=== PATIENT | female | born 1945 | race Caucasian/White ===

== ENCOUNTER → 2016-09-23 | Outpatient (CLI) | payer MEDICARE ==
[~2016-09-23] MED LIST: ASPI1TAB PO; ATOR1TAB21 PO; BENA20TA2 PO; CLON-412 PO; CORE25TA PO; GLIM4TAB PO; MAGN64TASA PO; POTA10CA PO; STOO100C PO; TORS10TA22 PO; TYLE500T78 PO
[2016-09-23 11:14] LABS: ALBUMIN 3.6 GM/DL (3.2-5.2); CALCIUM LEVEL 8.5 MG/DL (8.8-10.2); CREATININE FOR GFR 2.14 MG/DL (0.55-1.02); PHOSPHORUS LEVEL 2.8 MG/DL (2.5-4.9); POTASSIUM SERUM 4.4 MEQ/L (3.5-5.1)
== END ==
LOC: M LAB 10:10
PROVIDERS: ATTEND Physician Assistant
DX: I50.32 Chronic diastolic (congestive) heart failure (principal)

== ENCOUNTER → 2016-09-29 | Day surgery (SDC) | payer MEDICARE ==
[~2016-09-29] VITALS: Ht 152.4 cm; Wt 104.3 kg
[~2016-09-29] MED LIST changes: +BACITRACIN OINT 30GM As Ordered ONE; +CARVedilol 12.5 MG TAB PO ONE; +ISOVUE-300 61% 50ML VIAL (Q9967) As Ordered ONE; +LIDOCAINE 1% SDV INJ 30 ML VIAL As Ordered ONE; +LIDOCAINE 1% SDV INJ 30 ML VIAL XX ONE; +LIDOCAINE 2% INJ 100 MG/5 ML SDV (FOR ANES.) As Ordered ONE; +LR 1,000 ML IV SCH; +MIDAZOLAM INJ 2 MG/2 ML VIAL (J2250) As Ordered ONE; +PROPOFOL 200 MG/20 ML VIAL As Ordered ONE; -TORS10TA22 PO; +TORS10TA3 PO; +VANCOMYCIN 1000 MG/20 ML VIAL (J3370) As Ordered ONE; +ceFAZolin SOD 1 GM in D5W MINI-BAG PLUS 50 ML IV ONE; +fentaNYL 100 MCG/2 ML INJECTION (J3010) As Ordered ONE
[2016-09-29 14:11] VITALS: BP 213/107
[2016-09-29 18:00] VITALS: BP 186/77
--- NOTE | 2016-09-29 21:44 | RO ---
DATE OF PROCEDURE: 09/29/2016 PREOPERATIVE DIAGNOSIS: Battery depletion of dual chamber pacemaker pulse generator. POSTOPERATIVE DIAGNOSIS: Battery depletion of dual chamber pacemaker pulse generator. FINDINGS: Battery depletion of dual chamber pacemaker pulse generator. OPERATIVE PROCEDURE: Explantation of old dual chamber pacemaker pulse generator. Implantation of new dual chamber pacemaker pulse generator. SURGEON: Suraj Long MD PHARMACY RESIDENT: None. ANESTHESIA: Lidocaine 1% local/monitored anesthetic care. ESTIMATED BLOOD LOSS: Less than 15 mL. DRAINS: None. BLOOD PRODUCTS REPLACED: None. DRAINS: None. SPECIMENS: None. BIOPSIES: None. COMPLICATIONS: None. DESCRIPTION OF OPERATION: The patient was prepped and draped over the left pectoral region. 3M Ioban film was applied. Lidocaine 1% was used for local anesthetic. An incision was made with a #15 blade through and along the length of the preexisting pacemaker incision scar. Initially fine scissor dissection was used to work my way through the fatty layer and down to the anterior capsule, however, it was noted that a total of four pacemaker lead destiny-cross overlaps were present in the path of the incision and therefore, I used some assistance to free up and expose some of the lead material with PEAK PlasmaBlade. The suture holding down the pacemaker pulse generator was then cut with a blade. The pacemaker pulse generator was removed from the pocket. The terminal pins were freed and removed from the header after loosening the set screws. The terminal pins of the existing leads were connected to Alligator clips and tested and found to be satisfactory. Next, the respective terminal pins were placed into the header of the new pacemaker pulse generator and each one was secured by tightening the set screws with the hex screwdriver. The pacemaker pulse generator was then placed back into the pacemaker pocket. The deep layer was closed using individual sutures consisting of #4-0 Vicryl and utmost care was used to avoid perforating the pacemaker leads with the suture needle as some of the lead material continues to be on top of the pacemaker pulse generator. The skin was closed using nelly. The patient tolerated the procedure well without any immediate complications. The pacemaker pulse generator that was explanted was a [employer], model 5386 with serial number [id number], originally implanted 05/24/[address] Paulo Pearson. The new pacemaker pulse generator implanted was a [employer] Vishnu VANEGAS, model number [id number] with serial number [id number]. The existing right atrial lead was a [employer], model number 1388TC/52, originally implanted 05/24/2004 and serial number [id number]. Testing in the operating room for the right atrial lead showed capture threshold of 0.75 volts with 0.4 ms with P wave amplitude of 1.6 mV and lead impedance of 330 ohms. The existing chronic right atrial lead was a [employer], model number 1388TC/58 with serial number [id number] originally implanted 05/24/2004. Testing in the operating room in bipolar configuration for the right ventricle leads for a capture threshold of 1.125 volts at 0.4 ms and lead impendence of 410 ohms. The patient was pacemaker dependent with underlying asystole and therefore no R wave could be measured.
== END | disposition home or self-care (01) ==
LOC: M SDC 12:51
PROVIDERS: ATTEND Internal Medicine Cardiovascular Disease
DX: Z45.010 Encounter for checking and testing of cardiac pacemaker pulse generator [battery] (principal); E11.9 Type 2 diabetes mellitus without complications; I10 Essential (primary) hypertension; Z79.82 Long term (current) use of aspirin; E78.5 Hyperlipidemia, unspecified; Z79.899 Other long term (current) drug therapy
CPT/HCPCS: 33228; C1721; J0690; J3010; Q9967

== ENCOUNTER → 2017-02-17 | Outpatient (REF) | payer MEDICARE ==
[~2017-02-17] MED LIST changes: -BACITRACIN OINT 30GM As Ordered ONE; -CARVedilol 12.5 MG TAB PO ONE; -ISOVUE-300 61% 50ML VIAL (Q9967) As Ordered ONE; -LIDOCAINE 1% SDV INJ 30 ML VIAL As Ordered ONE; -LIDOCAINE 1% SDV INJ 30 ML VIAL XX ONE; -LIDOCAINE 2% INJ 100 MG/5 ML SDV (FOR ANES.) As Ordered ONE; -LR 1,000 ML IV SCH; -MIDAZOLAM INJ 2 MG/2 ML VIAL (J2250) As Ordered ONE; -PROPOFOL 200 MG/20 ML VIAL As Ordered ONE; -VANCOMYCIN 1000 MG/20 ML VIAL (J3370) As Ordered ONE; -ceFAZolin SOD 1 GM in D5W MINI-BAG PLUS 50 ML IV ONE; -fentaNYL 100 MCG/2 ML INJECTION (J3010) As Ordered ONE
== END ==
LOC: M LAB REF 12:53
PROVIDERS: ATTEND Internal Medicine Nephrology
DX: N39.0 Urinary tract infection, site not specified (principal)

== ENCOUNTER → 2017-04-10 | Outpatient (CLI) | payer MEDICARE ==
[~2017-04-10] MED LIST changes: -BENA20TA2 PO; +BENA20TA8 PO; +CLEO150C PO; +ISOS60TA2; +TORS20TA2; +VALS1TAB48
[2017-04-10 07:53] LABS: BASO # 0.1 K/mm3 (0.0-0.2); BASO % 0.8 % (0.0-1.0); EOS # 0.2 K/mm3 (0.0-0.50); EOS % 2.9 % (0.0-3.0); LARGE UNSTAINED CELL # 0.1 K/mm3 (0.0-0.4); LYMPH # 1.7 K/mm3 (1.5-4.5); LYMPH % 22.9 % (24.0-44.0); MEAN CORPUSCULAR HEMOGLOBIN 32.5 pg (27.0-33.0); MEAN CORPUSCULAR HGB CONC 33.7 g/dl (32.0-36.5); MEAN CORPUSCULAR VOLUME 96.3 fl (80.0-96.0); MONO # 0.5 K/mm3 (0.0-0.8); MONO % 7.2 % (0.0-5.0); NEUTROPHILS # 4.7 K/mm3 (1.8-7.7); NEUTROPHILS % 65.3 % (36.0-66.0); PLATELET COUNT, AUTOMATED 203 k/mm3 (150-450); RED CELL DISTRIBUTION WIDTH 13.2 % (11.5-14.5); WHITE BLOOD COUNT 7.2 K/mm3 (4.0-10.0)
[2017-04-10 08:18] LABS: ALBUMIN 3.2 GM/DL (3.2-5.2); ALBUMIN/GLOBULIN RATIO 0.97 (1.00-1.93); BILIRUBIN,TOTAL 0.3 MG/DL (0.2-1.0); CALCIUM LEVEL 8.9 MG/DL (8.8-10.2); CREATININE FOR GFR 1.85 MG/DL (0.55-1.02); GLOMERULAR FILTRATION RATE 28.4 (>39); POTASSIUM SERUM 4.3 MEQ/L (3.5-5.1); TOTAL PROTEIN 6.5 GM/DL (6.4-8.2)
== END ==
LOC: M LAB 07:21
PROVIDERS: ATTEND Nurse Practitioner Family
DX: E11.9 Type 2 diabetes mellitus without complications (principal); E78.5 Hyperlipidemia, unspecified; N18.4 Chronic kidney disease, stage 4 (severe); I50.9 Heart failure, unspecified; I11.0 Hypertensive heart disease with heart failure

== ENCOUNTER 2017-04-14 10:36 | Emergency (ER) | payer MEDICARE ==
[~2017-04-14 10:36] MED LIST changes: -CLEO150C PO; -ISOS60TA2; -TORS20TA2; -VALS1TAB48
[2017-04-14] MEDS ORDERED: ISOS60TA2 (11:07)
[2017-04-14] MEDS ORDERED: TORS20TA2 (11:07)
[2017-04-14] MEDS ORDERED: VALS1TAB48 (11:07)
[2017-04-14 11:24] LABS: BASO # 0.1 K/mm3 (0.0-0.2); BASO % 0.8 % (0.0-1.0); EOS # 0.2 K/mm3 (0.0-0.50); EOS % 2.3 % (0.0-3.0); LARGE UNSTAINED CELL # 0.1 K/mm3 (0.0-0.4); LARGE UNSTAINED CELL % 1.1 % (0.0-4.0); LYMPH # 1.3 K/mm3 (1.5-4.5); LYMPH % 15.7 % (24.0-44.0); MEAN CORPUSCULAR HGB CONC 33.8 g/dl (32.0-36.5); MEAN CORPUSCULAR VOLUME 97.8 fl (80.0-96.0); MONO # 0.5 K/mm3 (0.0-0.8); MONO % 6.9 % (0.0-5.0); NEUTROPHILS # 5.6 K/mm3 (1.8-7.7); NEUTROPHILS % 73.1 % (36.0-66.0); PLATELET COUNT, AUTOMATED 196 k/mm3 (150-450); RED CELL DISTRIBUTION WIDTH 13.2 % (11.5-14.5); WHITE BLOOD COUNT 7.7 K/mm3 (4.0-10.0)
[2017-04-14 11:51] LABS: ALBUMIN 3.1 GM/DL (3.2-5.2); ALBUMIN/GLOBULIN RATIO 0.91 (1.00-1.93); ALKALINE PHOSPHATASE 112 U/L (45-117); ALT/SGPT 14 U/L (12-78); ANION GAP 8 MEQ/L (8-16); AST/SGOT 8 U/L (15-37); BILIRUBIN,DIRECT 0.1 MG/DL (0.0-0.2); BILIRUBIN,TOTAL 0.5 MG/DL (0.2-1.0); BLOOD UREA NITROGEN 32 MG/DL (7-18); CALCIUM LEVEL 8.6 MG/DL (8.8-10.2); CARBON DIOXIDE LEVEL 24 MEQ/L (21-32); CHLORIDE LEVEL 110 MEQ/L (98-107); CREATININE FOR GFR 2.01 MG/DL (0.55-1.02); FREE T4 1.41 NG/DL (0.76-1.46); GLOMERULAR FILTRATION RATE 25.8 (>39); GLUCOSE, FASTING 214 MG/DL (83-110); POTASSIUM SERUM 4.7 MEQ/L (3.5-5.1); SODIUM LEVEL 142 MEQ/L (136-145); TOTAL PROTEIN 6.5 GM/DL (6.4-8.2)
--- NOTE | 2017-04-14 12:06 | REP ---
PORTABLE CHEST: AP portable view of the chest is performed. COMPARISON: 01/23/2016 as well as other prior exams. There is cardiomegaly again noted. There is pulmonary venous hypertension with scattered linear fibroatelectatic changes. No consolidating infiltrate is seen. Left pacemaker is again noted. Mediastinal silhouette is unchanged. IMPRESSION: Cardiomegaly. Scattered fibroatelectatic changes. No infiltrate is seen. Signed by Roshan Wiggins MD 04/14/2017 03:29 P
[2017-04-14] MEDS ORDERED: CLINDAMYCIN 900 MG in APPROPRIATE DILUENT 1 EA IV ONE (13:15)
[2017-04-14 14:45] VITALS: BP 130/62
[2017-04-14] MEDS ORDERED: CLEO150C PO (14:58)
--- NOTE | 2017-04-16 11:07 | ECGEPIP ---
Stationary ECG Study [facility] - ED Test Date: 2017-04-14 Pat Name: MIC FUNK Department: Room: - Gender: F [employer] Field Supervisor: tony : 1945 Requested By: Kit Funk Order Number: [id number] Reading MD: America Lombardi Measurements Intervals [place] Rate: 69 P: 199 VT: 204 QRS: 57 QRSD: 159 T: 121 QT: 436 QTc: 470 Interpretive Statements ELECTRONIC ATRIAL PACEMAKER ELECTRONIC VENTRICULAR PACEMAKER ABNORMAL RHYTHM ECG Electronically Signed On 04-16-2017 11:07:40 EDT by America Lombardi
== END 2017-04-14 15:09 | disposition home or self-care (01) ==
LOC: M ED 10:36
DX: L03.90 Cellulitis, unspecified (principal); R42 Dizziness and giddiness; Z95.0 Presence of cardiac pacemaker; I50.9 Heart failure, unspecified; E11.9 Type 2 diabetes mellitus without complications; I10 Essential (primary) hypertension; R55 Syncope and collapse; N18.9 Chronic kidney disease, unspecified; I51.7 Cardiomegaly; Z79.82 Long term (current) use of aspirin; Z79.899 Other long term (current) drug therapy; Z88.6 Allergy status to analgesic agent; Z88.8 Allergy status to other drugs, medicaments and biological substances
CPT/HCPCS: 71010; 80048; 80076; 82550; 82553; 83605; 83690; 84439; 84443; 84484; 85025; 87040; 87070; 87077; 87186; 93005; 93041; 94760; 96374; 99285; G0463

== ENCOUNTER → 2017-09-11 | Outpatient (REF) | payer MEDICARE ==
[~2017-09-11] MED LIST changes: +CLEO150C PO; +ISOS60TA2; +TORS20TA2; +VALS1TAB48
== END ==
LOC: M SFHCPLAZ 09:22
PROVIDERS: ATTEND Nurse Practitioner Family
DX: N18.4 Chronic kidney disease, stage 4 (severe) (principal); E11.9 Type 2 diabetes mellitus without complications; Z79.899 Other long term (current) drug therapy

== ENCOUNTER → 2017-11-16 | Outpatient (REF) | payer MEDICARE | LOC: M SFHCPLAZ 11-17 13:18 | DX: N39.0 Urinary tract infection, site not specified (principal) | CPT/HCPCS: 87086 ==

== ENCOUNTER → 2017-11-23 | Outpatient (REF) | payer MEDICARE ==
[2017-11-23 11:59] LABS: APPEARANCE, URINE HAZY (CLEAR); BACTERIA, URINE AUTO 1+ (NEGATIVE); BILIRUBIN, URINE AUTO NEGATIVE (NEGATIVE); BLOOD, URINE BLOOD 1+ (NEGATIVE); COLOR, URINE YELLOW (YELLOW); GLUCOSE, URINE (UA) AUTO 1+ mg/dL (NEGATIVE); KETONE, URINE AUTO NEGATIVE (NEGATIVE); LEUKOCYTE ESTERASE, URINE AUTO 2+ (NEGATIVE); NITRITE, URINE AUTO NEGATIVE (NEGATIVE); PROTEIN, URINE AUTO 1+ mg/dL (NEGATIVE); RBC, URINE AUTO 3 /HPF (0-3); SPECIFIC GRAVITY URINE AUTO 1.013 (1.002-1.035); SQUAMOUS EPITHELIAL CELL UR AU 6 /HPF (0-6); UROBILINOGEN, URINE AUTO 0.2 mg/dL (0.0-2.0); WBC, URINE AUTO 24 /HPF (0-3)
[2017-11-23 12:30] LABS: ALBUMIN 3.5 GM/DL (3.2-5.2); ALBUMIN/GLOBULIN RATIO 1.03 (1.00-1.93); ALKALINE PHOSPHATASE 135 U/L (45-117); ALT/SGPT 16 U/L (12-78); ANION GAP 10 MEQ/L (8-16); AST/SGOT 17 U/L (7-37); BILIRUBIN,TOTAL 0.6 MG/DL (0.2-1.0); BLOOD UREA NITROGEN 18 MG/DL (7-18); CALCIUM LEVEL 9.2 MG/DL (8.8-10.2); CARBON DIOXIDE LEVEL 30 MEQ/L (21-32); CHLORIDE LEVEL 103 MEQ/L (98-107); CREATININE FOR GFR 1.79 MG/DL (0.55-1.30); GLOMERULAR FILTRATION RATE 29.5 (>39); GLUCOSE, FASTING 248 MG/DL (70-100); POTASSIUM SERUM 4.5 MEQ/L (3.5-5.1); SODIUM LEVEL 143 MEQ/L (136-145); TOTAL PROTEIN 6.9 GM/DL (6.4-8.2)
== END ==
LOC: M SFHCPLAZ 08:31
DX: R30.0 Dysuria (principal); N18.4 Chronic kidney disease, stage 4 (severe)
CPT/HCPCS: 80053

== ENCOUNTER → 2017-12-01 | Outpatient (CLI) | payer MEDICARE ==
[2017-12-01 09:45] LABS: CHOLESTEROL LEVEL 141 MG/DL (<200); HDL CHOLESTEROL 38 MG/DL (>40); LDL CHOLESTEROL 36.6 MG/DL (<100); NON-HDL-C 103 MG/DL; TRIGLYCERIDES LEVEL 332 MG/DL (<150)
== END ==
LOC: M LAB 08:44
DX: E78.2 Mixed hyperlipidemia (principal)
CPT/HCPCS: 80061

== ENCOUNTER → 2017-12-07 | Outpatient (REF) | payer MEDICARE ==
[2017-12-07 12:19] LABS: ESTIMATED AVERAGE GLUCOSE 266 MG/DL (60-110); HEMOGLOBIN A1c 10.9 %
== END ==
LOC: M SFHCPLAZ 09:02
DX: E11.9 Type 2 diabetes mellitus without complications (principal)
CPT/HCPCS: 83036

== ENCOUNTER → 2018-01-11 | Outpatient (REF) | payer MEDICARE | LOC: M LAB REF 16:48 | DX: N39.0 Urinary tract infection, site not specified (principal) | CPT/HCPCS: 87086 ==

== ENCOUNTER → 2018-04-05 | Outpatient (REF) | payer MEDICARE ==
[2018-04-05 12:08] LABS: ALBUMIN 3.3 GM/DL (3.2-5.2); ALBUMIN/GLOBULIN RATIO 0.89 (1.00-1.93); ALKALINE PHOSPHATASE 115 U/L (45-117); ALT/SGPT 19 U/L (12-78); ANION GAP 9 MEQ/L (8-16); AST/SGOT 13 U/L (7-37); BILIRUBIN,TOTAL 0.5 MG/DL (0.2-1.0); BLOOD UREA NITROGEN 18 MG/DL (7-18); CALCIUM LEVEL 9.1 MG/DL (8.8-10.2); CARBON DIOXIDE LEVEL 28 MEQ/L (21-32); CHLORIDE LEVEL 103 MEQ/L (98-107); CREATININE FOR GFR 1.57 MG/DL (0.55-1.30); GLOMERULAR FILTRATION RATE 34.2 (>39); GLUCOSE, FASTING 245 MG/DL (70-100); POTASSIUM SERUM 4.6 MEQ/L (3.5-5.1); SODIUM LEVEL 140 MEQ/L (136-145)
[2018-04-05 12:29] LABS: ESTIMATED AVERAGE GLUCOSE 255 MG/DL (60-110); HEMOGLOBIN A1c 10.5 %
== END ==
LOC: M SFHCPLAZ 09:32
DX: N18.4 Chronic kidney disease, stage 4 (severe) (principal); E11.22 Type 2 diabetes mellitus with diabetic chronic kidney disease
CPT/HCPCS: 80053

== ENCOUNTER → 2018-07-14 | Outpatient (REF) | payer MEDICARE ==
[2018-07-14 12:04] LABS: ESTIMATED AVERAGE GLUCOSE 206 MG/DL (60-110); HEMOGLOBIN A1c 8.8 %
[2018-07-14 12:07] LABS: ALBUMIN 3.6 GM/DL (3.2-5.2); ALBUMIN/GLOBULIN RATIO 1.09 (1.00-1.93); ALKALINE PHOSPHATASE 106 U/L (45-117); ALT/SGPT 13 U/L (12-78); ANION GAP 6 MEQ/L (8-16); AST/SGOT 15 U/L (7-37); BILIRUBIN,TOTAL 0.8 MG/DL (0.2-1.0); BLOOD UREA NITROGEN 21 MG/DL (7-18); CALCIUM LEVEL 9.3 MG/DL (8.8-10.2); CARBON DIOXIDE LEVEL 30 MEQ/L (21-32); CHLORIDE LEVEL 103 MEQ/L (98-107); CREATININE FOR GFR 1.63 MG/DL (0.55-1.30); GLOMERULAR FILTRATION RATE 32.7 (>39); GLUCOSE, FASTING 161 MG/DL (70-100); POTASSIUM SERUM 4.3 MEQ/L (3.5-5.1); SODIUM LEVEL 139 MEQ/L (136-145); TOTAL PROTEIN 6.9 GM/DL (6.4-8.2)
== END ==
LOC: M SFHCPLAZ 09:59
DX: E11.9 Type 2 diabetes mellitus without complications (principal)
CPT/HCPCS: 80053

== ENCOUNTER → 2018-12-22 | Outpatient (REF) | payer MEDICARE ==
[~2018-12-22] MED LIST changes: -ASPI1TAB PO; +ASPI81TA26 PO; +KLOR10TA76 PO; -POTA10CA PO; -VALS1TAB48; +VALS1TAB68
[2018-12-22 15:52] LABS: ALBUMIN 3.5 GM/DL (3.2-5.2); BILIRUBIN,TOTAL 0.6 MG/DL (0.2-1.0); CALCIUM LEVEL 8.8 MG/DL (8.8-10.2); CHOLESTEROL RISK RATIO 3.228 (<5); CREATININE FOR GFR 2.16 MG/DL (0.55-1.30); GLOMERULAR FILTRATION RATE 23.7 (>39); HEMOGLOBIN A1c 12.6 %; POTASSIUM SERUM 4.8 MEQ/L (3.5-5.1); TOTAL PROTEIN 6.4 GM/DL (6.4-8.2)
[2018-12-22 18:25] LABS: MAGNESIUM LEVEL 1.8 MG/DL (1.8-2.4)
== END ==
LOC: M SFHCPLAZ 13:59
PROVIDERS: ATTEND Nurse Practitioner Family
DX: E11.9 Type 2 diabetes mellitus without complications (principal); I13.0 Hypertensive heart and chronic kidney disease with heart failure and stage 1 through stage 4 chronic kidney disease, or unspecified chronic kidney disease; N18.4 Chronic kidney disease, stage 4 (severe); E78.5 Hyperlipidemia, unspecified
CPT/HCPCS: 36415; 80053; 80061; 83036; 83735; G0463

== ENCOUNTER → 2019-04-27 | Outpatient (REF) | payer MEDICARE ==
[~2019-04-27] MED LIST changes: +MM S100C PO; -STOO100C PO
[2019-04-27 16:55] LABS: HEMOGLOBIN A1c 13.1 %
[2019-04-27 16:59] LABS: ALBUMIN 3.4 GM/DL (3.2-5.2); BILIRUBIN,TOTAL 0.4 MG/DL (0.2-1.0); CALCIUM LEVEL 8.9 MG/DL (8.8-10.2); CREATININE FOR GFR 2.14 MG/DL (0.55-1.30); GLOMERULAR FILTRATION RATE 23.9 (>39); POTASSIUM SERUM 5.5 MEQ/L (3.5-5.1); TOTAL PROTEIN 6.6 GM/DL (6.4-8.2)
== END ==
LOC: M SFHCPLAZ 14:02
PROVIDERS: ATTEND Nurse Practitioner Family
DX: E11.22 Type 2 diabetes mellitus with diabetic chronic kidney disease (principal); E11.65 Type 2 diabetes mellitus with hyperglycemia; E78.5 Hyperlipidemia, unspecified
CPT/HCPCS: 36415; 80053; 83036; G0463

== ENCOUNTER → 2019-12-12 | Outpatient (REF) | payer MEDICARE ==
[~2019-12-12] MED LIST changes: -GLIM4TAB PO; +GLIM4TAB5 PO
[2019-12-12 14:09] LABS: ALBUMIN 3.3 GM/DL (3.2-5.2); BILIRUBIN,TOTAL 0.8 MG/DL (0.2-1.0); CHOLESTEROL RISK RATIO 3.114 (<5); CREATININE FOR GFR 1.57 MG/DL (0.55-1.30); GLOMERULAR FILTRATION RATE 34.1 (>39); POTASSIUM SERUM 4.1 MEQ/L (3.5-5.1); TOTAL PROTEIN 6.5 GM/DL (6.4-8.2)
[2019-12-12 14:18] LABS: HEMOGLOBIN A1c 12.2 %
== END ==
LOC: M SFHCPLAZ 10:09
PROVIDERS: ATTEND Physician Assistant
DX: E11.65 Type 2 diabetes mellitus with hyperglycemia (principal); E78.5 Hyperlipidemia, unspecified
CPT/HCPCS: 36415; 80053; 80061; 83036; G0463

== ENCOUNTER 2020-03-28 23:33 | Inpatient (IN) | payer MEDICARE ==
[~2020-03-28] VITALS: Ht 175.3 cm; Wt 104.0 kg
[2020-03-29] MEDS ORDERED: CALC1CAP31 (00:11)
[2020-03-29] MEDS ORDERED: LOSA50TA88 (00:11)
[2020-03-29] MEDS ORDERED: TORS10TA3 (00:11)
[2020-03-29 00:41] LABS: BASO # 0.1 10^3/uL (0.0-0.2); BASO % 0.4 % (0.0-1.0); EOS # 0.1 10^3/uL (0.0-0.5); EOS % 0.5 % (0.0-3.0); HEMATOCRIT 32.4 % (36.0-47.0); LYMPH # 0.9 10^3/uL (1.5-5.0); LYMPH % 5.6 % (24.0-44.0); MEAN CORPUSCULAR HEMOGLOBIN 32.8 pg (27.0-33.0); MEAN CORPUSCULAR VOLUME 96.7 fl (80.0-96.0); MONO # 1.9 10^3/uL (0.0-0.8); MONO % 11.5 % (0.0-5.0); NEUTROPHILS # 13.2 10^3/uL (1.5-8.5); NEUTROPHILS % 80.5 % (36.0-66.0); PLATELET COUNT, AUTOMATED 157 10^3/uL (150-450); RED BLOOD COUNT 3.35 10^6/uL (4.00-5.40); WHITE BLOOD COUNT 16.3 10^3/uL (4.0-10.0)
[2020-03-29 01:48] LABS: ALBUMIN 2.6 GM/DL (3.2-5.2); ALT/SGPT 11 U/L (12-78); BILIRUBIN,DIRECT 0.3 MG/DL (0.0-0.2); BILIRUBIN,TOTAL 0.9 MG/DL (0.2-1.0); BLOOD UREA NITROGEN 36 MG/DL (7-18); CALCIUM LEVEL 8.2 MG/DL (8.8-10.2); CARBON DIOXIDE LEVEL 22 MEQ/L (21-32); CHLORIDE LEVEL 102 MEQ/L (98-107); CK-MB VALUE MASS < 1.0 NG/ML (<3.6); CPK CREATINE PHOSPHOKINASE 66 U/L (26-192); CREATININE FOR GFR 2.37 MG/DL (0.55-1.30); GLOMERULAR FILTRATION RATE 21.1 (>39); GLUCOSE, FASTING 418 MG/DL (70-100); LIPASE 42 U/L (73-393); MB/CK RELATIVE INDEX 1.52 (< OR =4); POTASSIUM SERUM 3.9 MEQ/L (3.5-5.1); SODIUM LEVEL 135 MEQ/L (136-145); TOTAL PROTEIN 6.2 GM/DL (6.4-8.2); TROPONIN I < 0.02 NG/ML (< 0.10)
[2020-03-29] MEDS ORDERED: GASTROGRAFIN SOLUTION 30ML (Q9963) As Ordered ONE (02:13)
[2020-03-29] MEDS ORDERED: ACETAMINOPHEN TAB 650MG DOSE (2X325MG) PO ONE (02:15)
[2020-03-29] MEDS: GASTROGRAFIN SOLUTION 30ML PO SCH ×2 (02:45→03:08)
--- NOTE | 2020-03-29 04:47 | REPVR ---
PROCEDURE INFORMATION: Exam: CT Abdomen And Pelvis Without Contrast Exam date and time: 03/29/2020 1:56 AM Age: 75 years old Clinical indication: Fever; Abdominal pain; Localized; Left; Additional info: Fever, left abd pain, HX of diverticulosis TECHNIQUE: Imaging protocol: Computed tomography of the abdomen and pelvis without contrast. Radiation optimization: All CT scans at this facility use at least one of these dose optimization techniques: automated exposure control; mA and/or kV adjustment per patient size (includes targeted exams where dose is matched to clinical indication); or iterative reconstruction. Other contrast: Oral, ggraphin, 600; COMPARISON: RENAL US 03/31/2016 12:14 PM FINDINGS: Tubes, catheters and devices: Pacemaker in position. Lungs: Minimal bibasilar atelectasis with some motion artifact. Liver: Multiple splenic and hepatic calcifications. Gallbladder and bile ducts: Layering density in the gallbladder with multiple stones. Pancreas: Normal. No ductal dilation. Spleen: Normal. No splenomegaly. Adrenals: Normal. No mass. Kidneys and ureters: Normal. No hydronephrosis. Stomach and bowel: Minimal sigmoid diverticulosis without diverticulitis. Appendix: A normal appendix is seen. Intraperitoneal space: Unremarkable. No free air. No significant fluid collection. Vasculature: There is mild calcification of the abdominal aorta with extension into the iliac arteries. Lymph nodes: Calcified celiac nodes. Bladder: Unremarkable as visualized. Reproductive: Pessary in position. Calcified uterine fibroid. Bones/joints: Unremarkable. No acute fracture. Soft tissues: Bilateral posterolateral perianal confluence and stranding, left greater than right with induration extending into the medial buttocks, particularly on the left consistent with phlegmon or possibly early abscess. A definite luke abscess is not identified. IMPRESSION: 1. Bilateral perianal confluence and stranding extending posteriorly into the medial buttocks, left greater than right consistent with cellulitis and phlegmon. A definite luke abscess is not identified. 2. Cholelithiasis with layering dense material and multiple stones. 3. Old granulomatous disease of the spleen, liver and celiac nodes. 4. Minimal sigmoid diverticulosis without diverticulitis. Electronically signed by: Karan Fields On 03/29/2020 04:47:05 AM
[2020-03-29] MEDS ORDERED: NS 1,000 ML IV SCH (05:24)
[2020-03-29] MEDS ORDERED: MAALOX 30 ML SUSP *UDC PO PRN (05:30)
[2020-03-29] MEDS ORDERED: DEXTROSE 50% 50 ML SYRINGE IV PRN (05:30)
[2020-03-29] MEDS ORDERED: MOM 30ML SUSPENSION UDC PO PRN (05:30)
[2020-03-29] MEDS ORDERED: GLUCAGON INJ 1MG VIAL SC PRN (05:30)
[2020-03-29] MEDS ORDERED: GLUCOSE 4GM CHEW TABLET PO PRN (05:30)
--- NOTE | 2020-03-29 05:31 | HPEPDOC ---
[facility] Medical History & Physical Date of Admission Mar 29, 2020 Date of Service: Mar 29, 2020 Attending Physician: JOANN SALDAÑA MD History and Physical TIME OF SERVICE: 6:15 AM CHIEF COMPLAINT: Sore rectum HISTORY OF PRESENT ILLNESS: This is a 75-year-old female who came in with complaints of sore rectum for about one day. She denies having any pain with bowel movements, but reported that her bowel movements were watery. She is also had fevers but denies having chills, nausea, or vomiting. CT scan showed perineal cellulitis without abscess; she was started on vancomycin. REVIEW OF SYSTEMS: 12 point review of systems negative except as listed in HPI PAST MEDICAL/ SURGICAL HISTORY: Chronic diastolic CHF CKD 4 Uncontrolled diabetes because patient refuses insulin Chronic HTN FREYA Dyslipidemia Pacemaker placement Cataract surgery Total right knee replacement section SOCIAL HISTORY: She doesn't smoke FAMILY HISTORY: Father had a brain tumor Diabetes CHF. Hypertension CAD ALLERGIES: Please see below. HOME MEDICATIONS: Please see below. PHYSICAL EXAMINATION: Vital Signs Date Time Temp Pulse Resp B/P (MAP) Pulse Ox O2 Delivery O2 Flow Rate FiO2 03/28/20 23:46 100.8 75 18 159/68 (98) 93 Room Air GEN: Obese/ well developed/ NAD HEENT: NCAT / lips acyanotic /mucus membranes moist and pink CVS: RRR/NMRG LUNGS:/ lungs are clear to auscultation bilaterally on room air ABDOMEN: Contour ( obese) NEURO: CN 2-12 are grossly intact / speech is not dysarthric PSYCH: alert and oriented to person place and time/ able to understand and follow all commands LABORATORY DATA: 03/29/20 00:22 Immature Granulocyte % (Auto) 1.5, Neutrophils (%) (Auto) 80.5H, Lymphocytes (%) (Auto) 5.6L, Monocytes (%) (Auto) 11.5H, Eosinophils (%) (Auto) 0.5, Basophils (%) (Auto) 0.4, Neutrophils # (Auto) 13.2H, Lymphocytes # (Auto) 0.9L, Monocytes # (Auto) 1.9H, Eosinophils # (Auto) 0.1, Basophils # (Auto) 0.1, Nucleated Red Blood Cells % (auto) 0.0, Anion Gap 11, Glomerular Filtration Rate 21.1L, Lactic Acid Level 1.4, Calcium Level 8.2L, Total Bilirubin 0.9, Direct Bilirubin 0.3H, Aspartate Amino Transf (AST/SGOT) 12, Alanine Aminotransferase (ALT/SGPT) 11L, Alkaline Phosphatase 112, Total Creatine Kinase 66, Creatine Kinase MB < 1.0, Creatine Kinase MB Relative Index 1.52, Troponin I < 0.02, Total Protein 6.2L, Albumin 2.6L, Albumin/Globulin Ratio 0.7L, Lipase 42L 03/29/20 00:46: Urine Color YELLOW, Urine Appearance HAZY, Urine pH 5.0, Urine Specific Harold 1.012, Urine Protein NEGATIVE, Urine Glucose (UA) 3+H, Urine Ketones NEGATIVE, Urine Blood 1+H, Urine Nitrite NEGATIVE, Urine Bilirubin NEGATIVE, Urine Urobilinogen 0.2, Urine Leukocyte Esterase NEGATIVE, Urine WBC (Auto) 1, Urine RBC (Auto) 2, Urine Hyaline Casts (Auto) 68, Urine Bacteria (Auto) NEGATIVE, Ur ine Squamous Epithelial Cells 1, Urine Amorphous Sediment SMALLH, Urine Sperm (Auto) IMAGING: CT of the abdomen and pelvis "IMPRESSION: 1. Bilateral perianal confluence and stranding extending posteriorly into the medial buttocks, left greater than right consistent with cellulitis and phlegmon. A definite luke abscess is not identified. 2. Cholelithiasis with layering dense material and multiple stones. 3. Old granulomatous disease of the spleen, liver and celiac nodes. 4. Minimal sigmoid diverticulosis without diverticulitis. " Chest x-ray there appears to be cardiomegaly, a pacemaker and prominent hilar lymph nodes but no acute process, but the final read is pending MICROBIOLOGY: 03/29/20 Respiratory Virus Panel (PCR) ([facility]) - Final, Complete 03/29/20 Blood Culture, Received Pending 03/29/20 Blood Culture, Received Pending ASSESSMENT: a 75 yr old w a hx of noncompliance, diastolic CHF, CKD 4, uncontrolled diabetes, HTN, dyslipidemia, and pacemaker placement who is admitted for management of sepsis secondary to perianal cellulitis. PLAN: 1. Sepsis likely secondary to perianal cellulitis SIRS criteria include Temp >101 / WBC >12 Lactic acid <2 She received vancomycin in the ER Plan: admit to PCU / telemetry / Sepsis /. Continue vancomycin for M RSA and add cefazolin for MSSA coverage / IV fluids /f/u blood cx, and final chest x- ray report / Acetaminophen PRN for fever / target MAP at least 65 to 70 mmHG / f/u Is and Os with target UOP of at least 0.5 ml/kg/H / target serum glucose 140-180 while acutely ill / follow-up VBG with target, SPO2 of at least 70 2. Uncontrolled diabetes. Secondary to noncompliance with insulin. The patient has been refusing insulin in the ER. There are no ketones in the urine and her anion gap is normal. Plan: diabetic diet / f/u accuchecks & A1C / hypoglycemia protocol / sliding scale insulin / hold glimepiride while acutely ill 3. REN on CKD4 Plan: IVF / f/u ulytes for FENa or FEUrea /calcitriol / hold losartan and torsemide because of REN 4. Macrocytic anemia Likely multifactorial. Plan: Follow-up iron studies, B12 and folate 5. Chronic diastolic CHF / Chronic HTN Plan: Clonidine, Coreg / losartan and torsemide are on hold 6. Dyslipidemia Plan: Atorvastatin 7. Obesity BMI 42.6 with coexisting diabetes complicates care Since the BMI >35 and the patient has DM, she is a candidate for bariatric surgery Plan: f the pt can f/u w his or her PCP for STOP BANG questionnaire, golf shoe spike assembler consult DVT PROPHYLAXIS: heparin DISPOSITION: Likely home after more than 2 midnight's stay Home Medications Scheduled Aspirin (Aspirin EC) 81 Mg Tab, 81 MG PO DAILY Atorvastatin Calcium (Atorvastatin Calcium) 20 Mg Tab, 20 MG PO QHS Calcitriol (Calcitriol) 0.25 Mcg Capsule, 0.25 MCG PO 3XW THURSDAY, THURSDAY AND THURSDAY Carvedilol (Coreg) 25 Mg Tab, 25 MG PO BID Clonidine HCl (Clonidine HCl) 0.1 Mg Tab, 0.1 MG PO BID Glimepiride (Glimepiride) 4 Mg Tab, 4 MG PO BID Isosorbide Mononitrate (Isosorbide Mononitrate ER) 60 Mg Tab.er.24h, 60 MG PO DAILY Linagliptin (Tradjenta) 5 Mg Tablet, 5 MG PO DAILY Losartan Potassium (Losartan Potassium) 50 Mg Tablet, 50 MG PO QHS Magnesium Chloride (Mag64) 64 Mg Tabcr, 64 MG PO QHS Torsemide (Torsemide) 10 Mg Tablet, 20 MG PO DAILY Scheduled PRN Docusate Sodium (Stool Softener) 100 Mg Cap, 100 MG PO DAILY PRN for CONSTIPATION Allergies Coded Allergies: bisoprolol (Verified Adverse Reaction, Unknown, 03/29/20) PUTS ME OUT ON CLOUD 9 propoxyphene (Verified Adverse Reaction, Unknown, 03/29/20) PUTS ME OUT ON CLOUD 9 simvastatin (Verified Adverse Reaction, Unknown, 03/29/20) PUTS ME OUT ON CLOUD 9 A-FIB/CHADSVASC A-FIB History Current/History of A-Fib/PAF?: No Current PO Anticoag Therapy: JOANN Naqvi MD Mar 29, 2020 05:31
[2020-03-29] MEDS ORDERED: LOSA50TA88 PO (05:54)
[2020-03-29] MEDS ORDERED: CALC1CAP31 PO (05:54)
[2020-03-29] MEDS ORDERED: TORS10TA3 PO (05:54)
[2020-03-29] MEDS ORDERED: ISOS60TA2 PO (05:54)
[2020-03-29] MEDS: HumaLOG INSULIN (NovoLOG) PER UNIT SC SCH ×4 (06:00→23:54)
[2020-03-29 06:12] LABS: VENOUS BASE EXCESS -4.9 (-2.0-2.0); VENOUS HCO3 19.1 MEQ/L (23.0-27.0); VENOUS O2 SATURATION 94.3 % (60.0-80.0); VENOUS PARTIAL PRESSURE CO2 32.5 mmHg (38.0-50.0); VENOUS PH 7.387 UNITS (7.330-7.430); VENOUS STANDARD HCO3 20.3 MEQ/L; VENOUS TOTAL CO2 20.1 MEQ/L (24.0-28.0)
[2020-03-29] MEDS: HEPARIN SOD (PORCINE) 5000UNITS/ML VIAL (J1644 PER 1000UNITS) SC SCH ×3 (06:16→22:00)
[2020-03-29] MEDS: ceFAZolin SOD 1 GM in D5W MINI-BAG PLUS 50 ML IV SCH ×3 (06:17→22:36)
[2020-03-29 06:18] LABS: HEMATOCRIT 35.1 % (36.0-47.0); HEMOGLOBIN 12.1 g/dl (12.0-15.5); MEAN CORPUSCULAR HEMOGLOBIN 33.3 pg (27.0-33.0); MEAN CORPUSCULAR HGB CONC 34.5 g/dl (32.0-36.5); MEAN CORPUSCULAR VOLUME 96.7 fl (80.0-96.0); PLATELET COUNT, AUTOMATED 179 10^3/uL (150-450); RED BLOOD COUNT 3.63 10^6/uL (4.00-5.40); WHITE BLOOD COUNT 22.5 10^3/uL (4.0-10.0)
[2020-03-29 06:40] LABS: CALCIUM LEVEL 8.7 MG/DL (8.8-10.2); CREATININE FOR GFR 2.88 MG/DL (0.55-1.30); GLOMERULAR FILTRATION RATE 16.9 (>39); POTASSIUM SERUM 3.9 MEQ/L (3.5-5.1)
--- NOTE | 2020-03-29 06:57 | PHACANCOPD ---
PHARMACY VANCOMYCIN DOSING Pt Demographics Demographics Patient Age:75 , Weight:130.910 , Gender: female Adjusted Body Weight Date: 03/29/20, Adjusted Body Weight: [92.1 Kg Vancomycin Vancomycin indication: PERIRECTAL CELULITIS Vancomycin Target Ranges: 15-20 mcg/ml Vancomycin Load Y/N: Yes Load Dose Date Time Vancomycin Load Dose: 1.5GM Date: 03/29 Time: 0800 Vancomycin Dose Date: 03/29/20. Current Vancomycin Dose: [1 GM IV Q24H] Intermittent Dosing?: No Labs Micro Microbiology 03/29/20 Respiratory Virus Panel (PCR) ([facility]) - Final, Complete 03/29/20 Blood Culture, Received Pending 03/29/20 Blood Culture, Received Pending Creatinine Clearance Date:03/29/20. Creatinine Clearance: [28.9].CALCULATED Assessment and Plan Maintaining Current Dose?: Yes Reason for dose change: No Dose Change Pharmacist Note Pharmacist Note Date: 03/29/20. Pharmacist note:75 YOF ADMITTED W/ PERIRECTAL CELLULITIS,HT:60",WT:130.9 KG(ABW= 92 KG) SCR:2.37, CRCL=28.9(CALCULATED). ABX REGIMEN INCLUDES CEFAZOLIN 1 GM iv Q8H AND PHARMACY DOSED VANCOMYCIN(TROUGH GOAL= 15-20).Vancomycin load of 1.5 gm ordeed for this morning@0800, then will begin Vancomycin 1 gm iv Q24h 03/30@5:00. First trough is scheduled for 03/31@4:00.Will continue to follow [facility] Mar 29, 2020 06:56
[2020-03-29 07:08] LABS: HEMOGLOBIN A1c 13.4 %
[2020-03-29] MEDS ORDERED: VANCOMYCIN HCL 750 MG, VIAL MATE ADAPTER 1 EACH in D5W 250 ML IV ONE ×2 (08:00→09:00)
[2020-03-29] MEDS: GLIMEPIRIDE 2 MG TAB PO SCH ×2 (08:10→18:45)
[2020-03-29] MEDS: ASPIRIN 81 MG ENTERIC TAB PO SCH (08:33)
[2020-03-29] MEDS: ISOSORBIDE MON. (IMDUR) 60 MG XR TAB PO SCH (08:33)
[2020-03-29] MEDS: CARVedilol 12.5 MG TAB PO SCH ×2 (08:33→22:36)
[2020-03-29] MEDS: cloNIDine 0.1 MG TAB PO SCH ×2 (08:33→22:36)
[2020-03-29 09:05] LABS: PERCENT SATURATION 10.3 % (13.2-45.0)
--- NOTE | 2020-03-29 09:46 | REP ---
REASON FOR EXAM: Fever. COMPARISON: 04/14/2017, the latest prior. The technique utilized in obtaining the radiograph has magnified the cardiac silhouette and accentuated the interstitial markings. Once again, there is cardiomegaly accentuated by technique. The dual chamber bipolar pacemaker device is unchanged. No acute patchy parenchymal opacities or pleural effusions have developed. The osseous structures are stable and intact. IMPRESSION: No evidence of acute cardiopulmonary disease or significant change compared to the prior exam as described above. Electronically Signed by Feng Haque DO 03/29/2020 04:53 P
[2020-03-29 10:19] LABS: FOLATE 8.3 NG/ML
[2020-03-29] MEDS ORDERED: TRAD5TAB PO (11:59)
--- NOTE | 2020-03-29 13:37 | IPNPDOC ---
Text Note Date of Service The patient was seen on 03/29/20. NOTE Subjective: -Refusing insulin completely nomatter what. VITALS: see below GEN: Obese, well developed, NAD HEENT: NCAT, PERRLA, EOMI, anicteric CVS: RRR, No MRG LUNGS: CTAB ABDOMEN: Obese, normoactive sounds, NTND NEURO: CN 2-12 are grossly intact, speech is not dysarthric PSYCH: AO x 3 LABORATORY DATA: WBC 22.5 Hgb 12.1 Platelets 179 Na 134 K 3.9 Cr 2.88 IMAGING: CT of the abdomen and pelvis "IMPRESSION: 1. Bilateral perianal confluence and stranding extending posteriorly into the medial buttocks, left greater than right consistent with cellulitis and phlegmon. A definite luke abscess is not identified. 2. Cholelithiasis with layering dense material and multiple stones. 3. Old granulomatous disease of the spleen, liver and celiac nodes. 4. Minimal sigmoid diverticulosis without diverticulitis. " Chest x-ray there appears to be cardiomegaly, a pacemaker and prominent hilar lymph nodes but no acute process, but the final read is pending MICROBIOLOGY: 03/29/20 Respiratory Virus Panel (PCR) ([facility]) - Final, negative 03/29/20 Blood Culture, NGTD 03/29/20 Blood Culture, NGTD ASSESSMENT: a 75 yr old w a hx of noncompliance, diastolic CHF, CKD 4, uncontrolled diabetes, HTN, dyslipidemia, and pacemaker placement who is admitted for management of sepsis secondary to perianal cellulitis. PLAN: 1. Sepsis secondary to perianal cellulitis, with fever and leukocytosis -Continue vancomycin for MRSA and add cefazolin for MSSA coverage. -MRSA PCR -IV fluids -f/u blood cx -Acetaminophen PRN for fever 2. Uncontrolled diabetes with ongoing hyperglycemia: Secondary to noncompliance with insulin. -The patient is adamantly refusing insulin. Spoke with PCP who also told me that she has refused insulin for years -No ketones in the urine and her anion gap is normal. -Diabetic diet -f/u FSBG AC/HS -hypoglycemia protocol -sliding scale insulin if she agrees -continue home glimepiride because that is all I can offer her right now 3. REN on CKD4 -IVF -f/u ulytes -calcitriol -hold losartan and torsemide 4. Macrocytic anemia -Follow-up iron studies, B12 and folate 5. Chronic diastolic CHF nad hypertension -continue Clonidine, Coreg -holding losartan and torsemide 6. Dyslipidemia -continue Atorvastatin 7. Obesity BMI 42.6 with coexisting diabetes complicates care Since the BMI >35 and the patient has DM, she is a candidate for bariatric surgery Plan: PCP follow up for STOP BANG questionnaire and outpatient foreign language stenographer consult DVT PROPHYLAXIS: heparin VS,Fishbone, I+O VS, Fishbone, I+O Laboratory Tests 03/29/20 00:22 03/29/20 06:07 Vital Signs Date Time Temp Pulse Resp B/P (MAP) Pulse Ox O2 Delivery O2 Flow Rate FiO2 03/29/20 11:45 70 95 03/29/20 11:30 20 121/56 (77) Room Air 03/29/20 10:00 97.9 DAHIANA HAGEN MD Mar 29, 2020 13:37
[2020-03-29 17:15] VITALS: BP 119/57
[2020-03-29 18:00] VITALS: BP 158/77
[2020-03-29] MEDS: MAGNESIUM CHLORIDE 64 MG TABCR (SLO MAG) PO SCH (22:35)
[2020-03-29] MEDS: ATORVASTATIN 20 MG TAB PO SCH (22:36)
[2020-03-30] VITALS (8 sets, daily range): BP systolic 115–151; BP diastolic 56–70
[2020-03-30 04:40] LABS: HEMATOCRIT 30.6 % (36.0-47.0); MEAN CORPUSCULAR HEMOGLOBIN 32.7 pg (27.0-33.0); PLATELET COUNT, AUTOMATED 165 10^3/uL (150-450); RED BLOOD COUNT 3.09 10^6/uL (4.00-5.40); WHITE BLOOD COUNT 16.6 10^3/uL (4.0-10.0)
[2020-03-30 04:52] LABS: HEMOGLOBIN 10.1 g/dl (12.0-15.5)
[2020-03-30 05:00] LABS: CREATININE FOR GFR 2.48 MG/DL (0.55-1.30); GLOMERULAR FILTRATION RATE 20.1 (>39); POTASSIUM SERUM 3.7 MEQ/L (3.5-5.1)
[2020-03-30] MEDS ORDERED: VANCOMYCIN HCL 1,000 MG, VIAL MATE ADAPTER 1 EACH in D5W 250 ML IV SCH (05:00)
[2020-03-30] MEDS: HEPARIN SOD (PORCINE) 5000UNITS/ML VIAL (J1644 PER 1000UNITS) SC SCH ×3 (06:00→21:33)
[2020-03-30] MEDS: HumaLOG INSULIN (NovoLOG) PER UNIT SC SCH ×4 (06:00→21:00)
[2020-03-30] MEDS: CALCITRIOL 0.25 MCG CAP (S0169) PO SCH (08:07)
[2020-03-30] MEDS: ISOSORBIDE MON. (IMDUR) 60 MG XR TAB PO SCH (08:09)
[2020-03-30] MEDS: CARVedilol 12.5 MG TAB PO SCH ×2 (08:10→21:33)
[2020-03-30] MEDS: cloNIDine 0.1 MG TAB PO SCH ×2 (08:10→21:33)
[2020-03-30] MEDS: ASPIRIN 81 MG ENTERIC TAB PO SCH (08:10)
[2020-03-30] MEDS: ceFAZolin SOD 1 GM in D5W MINI-BAG PLUS 50 ML IV SCH ×3 (09:03→21:34)
[2020-03-30] MEDS: GLIMEPIRIDE 2 MG TAB PO SCH ×2 (10:05→17:02)
[2020-03-30] MEDS ORDERED: DEXTROSE 50% 50 ML SYRINGE IV PRN (12:00)
[2020-03-30] MEDS ORDERED: GLUCAGON INJ 1MG VIAL SC PRN (12:00)
[2020-03-30] MEDS ORDERED: GLUCOSE 4GM CHEW TABLET PO PRN (12:00)
--- NOTE | 2020-03-30 14:37 | IPNPDOC ---
Text Note Date of Service The patient was seen on 03/30/20. NOTE Subjective: -Has pain with sitting due to buttock phlegmon, otherwise feels ok VITALS: see below GEN: Obese, well developed, NAD HEENT: NCAT, PERRLA, EOMI, anicteric CVS: RRR, No MRG LUNGS: CTAB ABDOMEN: Obese, normoactive sounds, NTND NEURO: CN 2-12 are grossly intact, speech is not dysarthric PSYCH: AO x 3 : has hard tender lesion on L>R medial buttock with skin changes without drainage LABORATORY DATA: WBC 16.6 Hgb 10.1 Na 136 K 3.7 Cr 2.48 glucose 302 IMAGING: CT of the abdomen and pelvis "IMPRESSION: 1. Bilateral perianal confluence and stranding extending posteriorly into the medial buttocks, left greater than right consistent with cellulitis and phlegmon. A definite luke abscess is not identified. 2. Cholelithiasis with layering dense material and multiple stones. 3. Old granulomatous disease of the spleen, liver and celiac nodes. 4. Minimal sigmoid diverticulosis without diverticulitis. " Chest x-ray there appears to be cardiomegaly, a pacemaker and prominent hilar lymph nodes but no acute process, but the final read is pending MICROBIOLOGY: 03/29/20 Respiratory Virus Panel (PCR) ([facility]) - Final, negative 03/29/20 Blood Culture, NGTD 03/29/20 Blood Culture, NGTD ASSESSMENT: a 75 yr old w a hx of noncompliance, diastolic CHF, CKD 4, uncontrolled diabetes, HTN, dyslipidemia, and pacemaker placement who is admitted for manag ement of sepsis secondary to perianal cellulitis with c/f abscess PLAN: 1. Sepsis secondary to perianal cellulitis with phlegmon with c/f abscess with fever and leukocytosis -DC vancomycin because she was MRSA negative, continue cefazolin. -f/u blood cx -Acetaminophen PRN for fever -consulted Dr. London 2. Uncontrolled diabetes with ongoing hyperglycemia: Secondary to noncompliance with insulin. -The patient continues to adamantly refuse insulin. Spoke with PCP on 03/29 who also told me that she has refused insulin for years -No ketones in the urine and her anion gap is normal. -Diabetic diet -f/u FSBG AC/HS -hypoglycemia protocol -sliding scale insulin if she agrees -continue home glimepiride because that is all I can offer her right now. 3. REN on CKD4: resolved. back to baseline after hdyration -s/p IVF -calcitriol -continue holding losartan and torsemide 4. Macrocytic anemia -Follow-up iron studies, B12 and folate 5. Chronic diastolic CHF nad hypertension -continue Clonidine, Coreg -holding losartan and torsemide 6. Dyslipidemia -continue Atorvastatin 7. Obesity BMI 42.6 with coexisting diabetes complicates care Since the BMI >35 and the patient has DM, she is a candidate for bariatric surgery Plan: PCP follow up for STOP BANG questionnaire and outpatient asphalt smoother consult DVT PROPHYLAXIS: heparin VS,Fishbone, I+O VS, Fishbone, I+O Laboratory Tests 03/30/20 04:09 Vital Signs Date Time Temp Pulse Resp B/P (MAP) Pulse Ox O2 Delivery O2 Flow Rate FiO2 03/30/20 12:00 97.3 72 18 121/58 (79) 98 Room Air I&O- Last 24 Hours up to 6 AM 03/30/20 06:00 Intake Total 760 ml Output Total 201 ml Balance 559 ml DAHIANA HAGEN MD Mar 30, 2020 14:37
[2020-03-30] MEDS ORDERED: SLF 3 ML SYR IV PRN (16:45)
[2020-03-30] MEDS ORDERED: LIDOCAINE W/EPINEPHRINE 1% 20ML VIAL SC ONE (21:00)
[2020-03-30] MEDS: MAGNESIUM CHLORIDE 64 MG TABCR (SLO MAG) PO SCH (21:32)
[2020-03-30] MEDS: ATORVASTATIN 20 MG TAB PO SCH (21:32)
[2020-03-30] MEDS: SLF 3 ML SYR IV SCH (21:34)
[2020-03-30] MEDS: ACETAMINOPHEN TAB 650MG DOSE (2X325MG) PO PRN (23:55)
[2020-03-31] VITALS: BP 141/64
[2020-03-31 04:00] VITALS: BP 155/65
[2020-03-31] MEDS: HEPARIN SOD (PORCINE) 5000UNITS/ML VIAL (J1644 PER 1000UNITS) SC SCH ×3 (05:19→21:18)
[2020-03-31] MEDS: ceFAZolin SOD 1 GM in D5W MINI-BAG PLUS 50 ML IV SCH ×3 (05:39→21:19)
[2020-03-31] MEDS: SLF 3 ML SYR IV SCH ×3 (05:39→21:18)
--- NOTE | 2020-03-31 06:32 | RO ---
DATE OF PROCEDURE: 03/30/2020 PREOPERATIVE DIAGNOSIS: Perianal abscess. POSTOPERATIVE DIAGNOSIS: Perianal abscess. PROCEDURE PERFORMED: Incision and drainage of perianal abscess. SURGEON: Tristian London MD DEVELOPMENTAL EDUCATION INSTRUCTOR: ANESTHESIA: Local of 1% Xylocaine with epinephrine. INDICATIONS FOR THE PROCEDURE: Patient is a 75-year-old woman who presented several days ago with evidence for an infection in the perineum. She has continued to have tenderness particularly in the left perianal area. I was asked to see her and she has a definite fluctuant area at the left lateral position. PROCEDURE: The patient was placed in a left lateral decubitus position with the assistance of the nurse. The area was prepped with a Betadine pad. Local anesthesia was achieved over the fluctuant area using 1% Xylocaine with epinephrine. An approximately 2 cm incision was made in a radial orientation. There was immediate release of some purulent fluid. Probing revealed that the abscess extended both anteriorly and posteriorly as well as deeper and closer to the anal opening. These areas were probed to promote drainage. A small ellipse of skin was excised at the incision site. A wick of gauze was then inserted into the wound and covered with sterile gauze. Culturette was obtained for cultures. The patient tolerated the procedure well. CHARMAINE
[2020-03-31 07:04] VITALS: BP 145/68
[2020-03-31] MEDS: HumaLOG INSULIN (NovoLOG) PER UNIT SC SCH ×4 (07:30→20:43)
[2020-03-31 07:59] LABS: HEMATOCRIT 31.1 % (36.0-47.0); HEMOGLOBIN 10.6 g/dl (12.0-15.5); MEAN CORPUSCULAR HEMOGLOBIN 33.1 pg (27.0-33.0); MEAN CORPUSCULAR HGB CONC 34.1 g/dl (32.0-36.5); MEAN CORPUSCULAR VOLUME 97.2 fl (80.0-96.0); PLATELET COUNT, AUTOMATED 177 10^3/uL (150-450)
[2020-03-31] MEDS: GLIMEPIRIDE 2 MG TAB PO SCH ×2 (09:00→17:00)
[2020-03-31] MEDS: cloNIDine 0.1 MG TAB PO SCH ×2 (09:00→21:18)
[2020-03-31] MEDS: CARVedilol 12.5 MG TAB PO SCH ×2 (09:00→21:18)
[2020-03-31] MEDS: ISOSORBIDE MON. (IMDUR) 60 MG XR TAB PO SCH (09:01)
[2020-03-31] MEDS: ASPIRIN 81 MG ENTERIC TAB PO SCH (09:01)
[2020-03-31] MEDS: ACETAMINOPHEN TAB 650MG DOSE (2X325MG) PO PRN (09:18)
[2020-03-31 09:46] LABS: CALCIUM LEVEL 8.2 MG/DL (8.8-10.2); CREATININE FOR GFR 2.11 MG/DL (0.55-1.30); GLOMERULAR FILTRATION RATE 24.2 (>39); POTASSIUM SERUM 3.6 MEQ/L (3.5-5.1)
[2020-03-31 12:00] VITALS: BP 133/79
--- NOTE | 2020-03-31 13:19 | IPNPDOC ---
Text Note Date of Service The patient was seen on 03/31/20. NOTE Subjective: -Has some parianal pain that is better than yesterday. -is s/p I&D by Dr. London Objective VITALS: see below GEN: Obese, well developed, NAD HEENT: NCAT, PERRLA, EOMI, anicteric CVS: RRR, No MRG LUNGS: CTAB ABDOMEN: Obese, normoactive sounds, NTND NEURO: CN 2-12 are grossly intact, speech is not dysarthric PSYCH: AO x 3 LABORATORY DATA: Pending AM labs IMAGING: CT of the abdomen and pelvis "IMPRESSION: 1. Bilateral perianal confluence and stranding extending posteriorly into the medial buttocks, left greater than right consistent with cellulitis and phlegmon. A definite luke abscess is not identified. 2. Cholelithiasis with layering dense material and multiple stones. 3. Old granulomatous disease of the spleen, liver and celiac nodes. 4. Minimal sigmoid diverticulosis without diverticulitis. " Chest x-ray there appears to be cardiomegaly, a pacemaker and prominent hilar lymph nodes but no acute process, but the final read is pending MICROBIOLOGY: 03/29/20 Respiratory Virus Panel (PCR) ([facility]) - Final, negative 03/29/20 Blood Culture, NGTD 03/29/20 Blood Culture, NGTD 03/30/20 Abscess fluid culture ASSESSMENT: a 75 yr old w a hx of noncompliance, diastolic CHF, CKD 4, uncontrolled diabetes, HTN, dyslipidemia, and pacemaker placement who is admitted for management of sepsis secondary to perianal cellulitis with c/f abscess PLAN: 1. Sepsis secondary to perianal cellulitis with abscess with fever and leukocytosis -continue cefazolin. -s/p I&D of abscess on 03/30 -f/u abscess fluid culture and blood cx -Acetaminophen PRN for fever -consulted Dr. London who performed the I&D, appreciate recs 2. Uncontrolled diabetes with ongoing hyperglycemia: Secondary to noncompliance with insulin. -The patient continues to adamantly refuse insulin. Spoke with PCP on 03/29 who also told me that she has refused insulin for years -No ketones in the urine and her anion gap is normal. -Diabetic diet -f/u FSBG AC/HS -hypoglycemia protocol -sliding scale insulin if she agrees -continue home glimepiride because that is all I can offer her right now. 3. REN on CKD4: resolved. back to baseline after hdyration -s/p IVF -calcitriol -continue holding losartan and torsemide 4. Macrocytic anemia -Follow-up iron studies, B12 and folate 5. Chronic diastolic CHF nad hypertension -continue Clonidine, Coreg -holding losartan and torsemide 6. Dyslipidemia -continue Atorvastatin 7. Obesity BMI 42.6 with coexisting diabetes complicates care Since the BMI >35 and the patient has DM, she is a candidate for bariatric surgery Plan: PCP follow up for STOP BANG questionnaire and outpatient radio installer automobile consult DVT PROPHYLAXIS: heparin VS,Fishbone, I+O VS, Fishbone, I+O Vital Signs Date Time Temp Pulse Resp B/P (MAP) Pulse Ox O2 Delivery O2 Flow Rate FiO2 03/31/20 07:04 98.2 69 20 145/68 (93) 98 Room Air I&O- Last 24 Hours up to 6 AM 03/31/20 06:00 Intake Total 1440 ml Output Total 600 ml Balance 840 ml DAHIANA HAGEN MD Mar 31, 2020 07:33
[2020-03-31 16:00] VITALS: BP 124/60
[2020-03-31 20:00] VITALS: BP 138/65
[2020-03-31] MEDS: MAGNESIUM CHLORIDE 64 MG TABCR (SLO MAG) PO SCH (21:17)
[2020-03-31] MEDS: ATORVASTATIN 20 MG TAB PO SCH (21:18)
[2020-04-01] VITALS (7 sets, daily range): BP systolic 118–159; BP diastolic 55–71
[2020-04-01] MEDS: ACETAMINOPHEN TAB 650MG DOSE (2X325MG) PO PRN ×2 (03:38→21:31)
[2020-04-01 05:02] LABS: HEMATOCRIT 30.1 % (36.0-47.0); HEMOGLOBIN 9.8 g/dl (12.0-15.5); MEAN CORPUSCULAR HEMOGLOBIN 32.1 pg (27.0-33.0); MEAN CORPUSCULAR HGB CONC 32.6 g/dl (32.0-36.5); MEAN CORPUSCULAR VOLUME 98.7 fl (80.0-96.0); PLATELET COUNT, AUTOMATED 172 10^3/uL (150-450); RED BLOOD COUNT 3.05 10^6/uL (4.00-5.40); WHITE BLOOD COUNT 12.4 10^3/uL (4.0-10.0)
[2020-04-01 05:32] LABS: CALCIUM LEVEL 8.2 MG/DL (8.8-10.2); CREATININE FOR GFR 1.98 MG/DL (0.55-1.30); POTASSIUM SERUM 3.8 MEQ/L (3.5-5.1)
[2020-04-01] MEDS: HEPARIN SOD (PORCINE) 5000UNITS/ML VIAL (J1644 PER 1000UNITS) SC SCH ×3 (06:00→19:47)
[2020-04-01] MEDS: ceFAZolin SOD 1 GM in D5W MINI-BAG PLUS 50 ML IV SCH (06:08)
[2020-04-01] MEDS: SLF 3 ML SYR IV SCH ×3 (06:08→22:00)
[2020-04-01] MEDS: HumaLOG INSULIN (NovoLOG) PER UNIT SC SCH ×4 (07:30→21:00)
--- NOTE | 2020-04-01 08:44 | IPN ---
DATE: 03/31/2020 HISTORY: The patient underwent incision and drainage of a perianal abscess last evening. She reports that she is still sore but perhaps a little less so than she was yesterday. Vital signs show that she has been afebrile over the past 24 hours. Intake and output shows that she had 1400 in yesterday with 150 of urine recorded yesterday. She has had 450 mL of urine recorded today. Laboratory studies show that her white count has come down further to 14,000. Hemoglobin and hematocrit are stable at 11 and 31. Abscess culture is pending. IMPRESSION: The patient reports that she is feeling a little bit better since drainage of her abscess and her white blood cell count has fallen further. PLAN: I will check the patient's wound tomorrow on rounds and see how this compares. CHARMAINE
[2020-04-01] MEDS: CARVedilol 12.5 MG TAB PO SCH ×2 (09:17→21:32)
[2020-04-01] MEDS: cloNIDine 0.1 MG TAB PO SCH ×2 (09:18→21:31)
[2020-04-01] MEDS: ASPIRIN 81 MG ENTERIC TAB PO SCH (09:18)
[2020-04-01] MEDS: TORSEMIDE 20 MG TAB PO SCH (09:18)
[2020-04-01] MEDS: ISOSORBIDE MON. (IMDUR) 60 MG XR TAB PO SCH (09:19)
[2020-04-01] MEDS: GLIMEPIRIDE 2 MG TAB PO SCH ×2 (09:19→17:44)
[2020-04-01] MEDS: DOCUSATE SODIUM 100 MG CAP PO PRN (09:21)
--- NOTE | 2020-04-01 09:35 | CR ---
DATE OF CONSULTATION: 03/30/2020 (dictation cut off) is hairy anal abscess. HISTORY OF THE PRESENT ILLNESS: The patient is a (dictation cut off) who presented to the emergency department late on 03/28/2020 for evaluation of some generalized weakness and poor oral intake as well as some soreness in the perineum with sitting. She had, had symptoms for a day or two. On presentation, she was found to have an elevated white count to about 16,000 with a moderate left shift. Her blood sugars are significantly out of control and she apparently refuses any insulin both in the long-term management and short-term management of her diabetes. A CT scan of the abdomen and pelvis done in the early childhood associate teacher of was read as showing some inflammatory changes in the perianal area extending into the medial buttocks particularly on the left suggestive of a phlegmon or early abscess. A definite abscess was not identified. She was treated with antibiotics and monitored and she continued to complain of discomfort particularly in the medial aspect of the left buttock when sitting. I am now asked to evaluate her regarding a possible abscess. ALLERGIES: The patient reports allergies to BISOPROLOL, PROPOXYPHENE, and SIMVASTATIN. Her medications are as listed in the medical record. Her medical history is significant for diabetes mellitus for which she has continued to refuse insulin. Her blood sugars have apparently remained significantly out of control. She has chronic kidney disease, stage IV. She has hypertension. She has obstructive sleep apnea. Other diagnoses include dyslipidemia and osteoarthritis as well as a history of chronic diastolic congestive heart failure. She has had a pacemaker placed previously. Surgical history is significant for bilateral cataract extractions. Her pacemaker was placed 16 years ago and apparently the generator was changed in 2017. She has had two sections and has had a right total knee arthroplasty. Family history is noncontributory. SOCIAL HISTORY: The patient is a nonsmoker and denies excessive alcohol intake. REVIEW OF SYSTEMS: Reveals no history of recent chest pain, palpitations, shortness of breath, wheezing, cough, dysuria, hematuria, melena, hematochezia, nausea, vomiting, or significant new bone or joint problems. She has had no history of deep venous thrombosis (DVT) or pulmonary embolus. There is no history of seizure or stroke. She denies any history of prior perianal problems. PHYSICAL EXAMINATION: Reveals a pleasant older woman. She is moderately to markedly obese. Examination is limited to the perineum. The patient is examined in a left lateral decubitus position. She has a band of induration running along the left perianal and medial buttock area. There is induration over a band about 5 cm in width and extending over approximately 12-15 cm. There does not appear to be any inflammation on the patient's right-hand side. There is no induration or tenderness along the right side of the perianal region or directly anteriorly or posteriorly. There is clearly an area of fluctuance at the left midline with an abscess about 2.5 cm in diameter palpable in this region. There is some mild erythema associated with this as well as some mild to moderate direct tenderness. Her laboratory studies today show a white count of 17,000, which is down from 22,000 yesterday. Hemoglobin is 10, hematocrit 31, and platelet count 165,000. Chemistry profile shows normal electrolytes with BUN of 42, creatinine 2.48, and a glucose of 302. Calcium is 8.0. The CT scan from the morning of 03/29/2020 I reviewed personally and there is certainly some inflammatory change of thickening in the perirectal tissues, particularly on the left and extending into the medial buttock. IMPRESSION: Perirectal/perianal abscess. The patient clearly has a fluctuant abscess now at the left lateral midline of the perianal area. This appears to be fairly superficial but there is clearly some involvement of the medial aspect of the buttock. I suspect that this originated as a rectal infection and not a skin or subcutaneous structure infection. This has been partially treated with antibiotics since her admission. PLAN: I have recommended incision and drainage of this abscess to allow adequate drainage so that this area can begin to heal. The patient is agreeable with this plan. Because it is apparently fairly superficial at this point, I have recommended that we accomplish this at the bedside with some local anesthesia and she is agreeable. There is a separate dictation regarding this procedure. She should remain on her antibiotics and we will need to follow this to ensure that this has been adequately drained to alleviate her source for infection. Unfortunately, given the inability to closely control her blood sugars with all appropriate medications resolution of this infection may be somewhat delayed by her hyperglycemia.
[2020-04-01] MEDS: CEPHALEXIN 500 MG CAP PO SCH ×3 (12:10→21:31)
--- NOTE | 2020-04-01 14:25 | IPN ---
DATE: 04/01/2020 HISTORY: The patient is now postop day #2 from incision and drainage of her left-sided perianal abscess. She reports that she still has some tenderness in the area, though it is less. Vital signs show that she has been afebrile over the past 24 hours. Pulse is in the upper 60s and low 70s. Blood pressure is good. Intake and output shows 1600 in yesterday with 450 recorded out. Physical exam limited to the perineum shows that the induration and swelling along the medial aspect of the left buttock has diminished. The incision and drainage site is open with a small amount of necrotic appearing fatty tissue presenting at the opening. There is a small amount of yellowish drainage on the dressing but nothing further can be expressed. She remains mildly tender in the area. Laboratory studies show that her white count is down to 12, hemoglobin 10, hematocrit 30, and her chemistry shows that the blood sugar today is 299 with a BUN of 41, creatinine 1.98. Cultures from the time of the incision and drainage are growing lactobacillus and a yeastlike organism. IMPRESSION: Generally doing well now 2 days postop from her incision and drainage. The wound is remaining open with a small amount of drainage. PLAN: I will periodically inspect the wound and she should continue with her warm soaks or compresses three times a day at least.
--- NOTE | 2020-04-01 14:25 | IPNPDOC ---
Text Note Date of Service The patient was seen on 04/01/20. NOTE Subjective: -Doing well, no complaints this morning Objective VITALS: see below, HDS GEN: Obese, well developed, NAD HEENT: NCAT, PERRLA, EOMI, anicteric CVS: RRR, No MRG LUNGS: CTAB ABDOMEN: Obese, normoactive sounds, NTND NEURO: CN 2-12 are grossly intact, speech is not dysarthric, ambulating per baseline with walker PSYCH: AO x 3 LABORATORY DATA: Reviewed WBC 12.4 hgb 9.8 Platelets 172 na 138 K 3.8 Cr 1.98 glucose 299 IMAGING: CT of the abdomen and pelvis "IMPRESSION: 1. Bilateral perianal confluence and stranding extending posteriorly into the medial buttocks, left greater than right consistent with cellulitis and phlegmon. A definite luke abscess is not identified. 2. Cholelithiasis with layering dense material and multiple stones. 3. Old granulomatous disease of the spleen, liver and celiac nodes. 4. Minimal sigmoid diverticulosis without diverticulitis. " Chest x-ray there appears to be cardiomegaly, a pacemaker and prominent hilar lymph nodes but no acute process, but the final read is pending MICROBIOLOGY: 03/29/20 Respiratory Virus Panel (PCR) ([facility]) - Final, negative 03/29/20 Blood Culture, NGTD 03/29/20 Blood Culture, NGTD 03/30/20 Abscess fluid culture ASSESSMENT: 75 yr old w a hx of noncompliance, diastolic CHF, CKD 4, uncontrolled diabetes, HTN, dyslipidemia, and pacemaker placement who is admitted for management of sepsis secondary to perianal abscess and surrounding cellilitis s/p I&D doing well on cefazolin. PLAN: 1. Sepsis secondary to perianal cellulitis with abscess with fever and leukocytosis -Discontinue cefazolin and switch to keflex PO, day 3 of antibiotics -s/p I&D of abscess on 03/30 -f/u abscess fluid culture and blood cx -Acetaminophen PRN for fever -consulted Dr. London who performed the I&D, appreciate recs 2. Uncontrolled diabetes with ongoing hyperglycemia: Secondary to noncompliance with insulin. -The patient continues to adamantly refuse insulin. Spoke with PCP on 03/29 who also told me that she has refused insulin for years -No ketones in the urine and her anion gap is normal. -Diabetic diet -f/u FSBG AC/HS -hypoglycemia protocol -sliding scale insulin if she agrees -continue home glimepiride because that is all I can offer her right now. 3. REN on CKD4: resolved. back to baseline after hydration -s/p IVF -calcitriol -Restart home torsemide, continue holding losartan 4. Macrocytic anemia -Follow-up iron studies, B12 and folate 5. Chronic diastolic CHF and hypertension -continue Clonidine, Coreg -resume torsemide -continue holding losartan 6. Dyslipidemia -continue Atorvastatin 7. Obesity BMI 42.6 with coexisting diabetes complicates care Since the BMI >35 and the patient has DM, she is a candidate for bariatric surgery Plan: PCP follow up for STOP BANG questionnaire and outpatient director meetings consult DVT PROPHYLAXIS: heparin VS,Fishbone, I+O VS, Fishbone, I+O Laboratory Tests 04/01/20 04:38 Vital Signs Date Time Temp Pulse Resp B/P (MAP) Pulse Ox O2 Delivery O2 Flow Rate FiO2 04/01/20 04:00 97.8 70 18 159/71 (100) 97 Room Air I&O- Last 24 Hours up to 6 AM 04/01/20 06:00 Intake Total 1570 ml Output Total 450 ml Balance 1120 ml DAHIANA HAGEN MD Apr 01, 2020 08:04
[2020-04-01] MEDS ORDERED: SENOKOT S TAB PO PRN (21:15)
[2020-04-01] MEDS: ATORVASTATIN 20 MG TAB PO SCH (21:30)
[2020-04-01] MEDS: MAGNESIUM CHLORIDE 64 MG TABCR (SLO MAG) PO SCH (23:52)
[2020-04-02 02:00] VITALS: BP 159/73
[2020-04-02 06:00] VITALS: BP 157/71
[2020-04-02] MEDS: HEPARIN SOD (PORCINE) 5000UNITS/ML VIAL (J1644 PER 1000UNITS) SC SCH ×3 (06:00→21:03)
[2020-04-02 06:22] LABS: HEMATOCRIT 30.7 % (36.0-47.0); HEMOGLOBIN 10.1 g/dl (12.0-15.5); MEAN CORPUSCULAR HEMOGLOBIN 32.4 pg (27.0-33.0); MEAN CORPUSCULAR HGB CONC 32.9 g/dl (32.0-36.5); MEAN CORPUSCULAR VOLUME 98.4 fl (80.0-96.0); PLATELET COUNT, AUTOMATED 187 10^3/uL (150-450); RED BLOOD COUNT 3.12 10^6/uL (4.00-5.40); WHITE BLOOD COUNT 12.3 10^3/uL (4.0-10.0)
[2020-04-02] MEDS: SLF 3 ML SYR IV SCH ×2 (06:24→14:00)
[2020-04-02 06:40] LABS: CALCIUM LEVEL 8.4 MG/DL (8.8-10.2); CREATININE FOR GFR 1.7 MG/DL (0.55-1.30); POTASSIUM SERUM 3.6 MEQ/L (3.5-5.1)
[2020-04-02] MEDS: HumaLOG INSULIN (NovoLOG) PER UNIT SC SCH ×4 (07:30→21:00)
[2020-04-02] MEDS: CALCITRIOL 0.25 MCG CAP (S0169) PO SCH (08:34)
[2020-04-02] MEDS: ASPIRIN 81 MG ENTERIC TAB PO SCH (08:35)
[2020-04-02] MEDS: TORSEMIDE 20 MG TAB PO SCH (08:35)
[2020-04-02] MEDS: CEPHALEXIN 500 MG CAP PO SCH ×4 (08:35→20:07)
[2020-04-02] MEDS: ACETAMINOPHEN TAB 650MG DOSE (2X325MG) PO PRN (08:35)
[2020-04-02] MEDS: GLIMEPIRIDE 2 MG TAB PO SCH ×2 (08:35→18:14)
[2020-04-02] MEDS: ISOSORBIDE MON. (IMDUR) 60 MG XR TAB PO SCH (08:41)
[2020-04-02] MEDS: CARVedilol 12.5 MG TAB PO SCH ×2 (08:41→20:08)
[2020-04-02] MEDS: cloNIDine 0.1 MG TAB PO SCH ×2 (08:42→20:07)
--- NOTE | 2020-04-02 11:03 | IPNPDOC ---
Text Note Date of Service The patient was seen on 04/02/20. NOTE Subjective: -Doing well, no complaints this morning Objective VITALS: see below, HDS GEN: Obese, well developed, NAD HEENT: NCAT, PERRLA, EOMI, anicteric CVS: RRR, No MRG LUNGS: CTAB ABDOMEN: Obese, normoactive sounds, NTND NEURO: CN 2-12 are grossly intact, speech is not dysarthric, ambulating per baseline with walker PSYCH: AO x 3 LABORATORY DATA: Reviewed WBC 12.3 hgb 10.1 Platelets 187 K 3.6 Cr 1.7 IMAGING: CT of the abdomen and pelvis "IMPRESSION: 1. Bilateral perianal confluence and stranding extending posteriorly into the medial buttocks, left greater than r ight consistent with cellulitis and phlegmon. A definite luke abscess is not identified. 2. Cholelithiasis with layering dense material and multiple stones. 3. Old granulomatous disease of the spleen, liver and celiac nodes. 4. Minimal sigmoid diverticulosis without diverticulitis. " Chest x-ray there appears to be cardiomegaly, a pacemaker and prominent hilar lymph nodes but no acute process, but the final read is pending MICROBIOLOGY: 03/29/20 Respiratory Virus Panel (PCR) ([facility]) - Final, negative 03/29/20 Blood Culture, NGTD 03/29/20 Blood Culture, NGTD 03/30/20 Abscess fluid culture ASSESSMENT: 75 yr old w a hx of noncompliance, diastolic CHF, CKD 4, uncontrolled diabetes, HTN, dyslipidemia, and pacemaker placement who is admitted for management of sepsis secondary to perianal abscess and surrounding cellilitis s/p I&D doing well on cefazolin. PLAN: 1. Sepsis secondary to perianal cellulitis with abscess with fever and leukocytosis -continue keflex, day 5 of antibiotics -s/p I&D of abscess on 03/30 -f/u abscess fluid culture and blood cx -Acetaminophen PRN for fever -consulted Dr. London who performed the I&D, appreciate recs 2. Uncontrolled diabetes with ongoing hyperglycemia: Secondary to noncompliance with insulin. -The patient continues to adamantly refuse insulin. Spoke with PCP on 03/29 who also told me that she has refused insulin for years -No ketones in the urine and her anion gap is normal. -Diabetic diet -f/u FSBG AC/HS -hypoglycemia protocol -sliding scale insulin if she agrees -continue home glimepiride because that is all I can offer her right now. 3. REN on CKD4: resolved. back to baseline after hydration -s/p IVF -calcitriol -continue home torsemide, continue home losartan 4. Macrocytic anemia -Follow-up iron studies, B12 and folate 5. Chronic diastolic CHF and hypertension -continue Clonidine, Coreg -continue home torsemide -continue losartan 6. Dyslipidemia -continue Atorvastatin 7. Obesity BMI 42.6 with coexisting diabetes complicates care Since the BMI >35 and the patient has DM, she is a candidate for bariatric surgery Plan: PCP follow up for STOP BANG questionnaire and outpatient lab analyst consult DVT PROPHYLAXIS: heparin VS,Fishbone, I+O VS, Fishbone, I+O Laboratory Tests 04/02/20 05:59 Vital Signs Date Time Temp Pulse Resp B/P (MAP) Pulse Ox O2 Delivery O2 Flow Rate FiO2 04/02/20 08:42 160/72 04/02/20 08:41 72 04/02/20 06:00 97.4 18 97 Room Air I&O- Last 24 Hours up to 6 AM 04/02/20 06:00 Intake Total 770 ml Output Total 800 ml Balance -30 ml DAHIANA HAGEN MD Apr 02, 2020 11:03
[2020-04-02] MEDS ORDERED: LOSARTAN 50MG TABLET PO SCH (11:15)
[2020-04-02 14:00] VITALS: BP 151/65
[2020-04-02] MEDS: ATORVASTATIN 20 MG TAB PO SCH (20:07)
[2020-04-02] MEDS: MAGNESIUM CHLORIDE 64 MG TABCR (SLO MAG) PO SCH (20:08)
[2020-04-02] MEDS ORDERED: MIRALAX *UNIT DOSE* 17GM PACKET PO SCH (21:00)
[2020-04-02 22:00] VITALS: BP 149/53
[2020-04-03] MEDS: HEPARIN SOD (PORCINE) 5000UNITS/ML VIAL (J1644 PER 1000UNITS) SC SCH ×2 (05:22→12:05)
[2020-04-03 06:00] VITALS: BP 158/66
[2020-04-03 06:44] LABS: HEMATOCRIT 32.8 % (36.0-47.0); HEMOGLOBIN 10.8 g/dl (12.0-15.5); MEAN CORPUSCULAR HEMOGLOBIN 32.5 pg (27.0-33.0); MEAN CORPUSCULAR HGB CONC 32.9 g/dl (32.0-36.5); MEAN CORPUSCULAR VOLUME 98.8 fl (80.0-96.0); PLATELET COUNT, AUTOMATED 226 10^3/uL (150-450); RED BLOOD COUNT 3.32 10^6/uL (4.00-5.40); WHITE BLOOD COUNT 13.2 10^3/uL (4.0-10.0)
[2020-04-03 07:09] LABS: CALCIUM LEVEL 8.8 MG/DL (8.8-10.2); CREATININE FOR GFR 1.67 MG/DL (0.55-1.30); GLOMERULAR FILTRATION RATE 31.7 (>39); POTASSIUM SERUM 4.2 MEQ/L (3.5-5.1)
[2020-04-03] MEDS: HumaLOG INSULIN (NovoLOG) PER UNIT SC SCH ×2 (07:30→12:05)
[2020-04-03 07:49] VITALS: BP 171/73
[2020-04-03] MEDS: ISOSORBIDE MON. (IMDUR) 60 MG XR TAB PO SCH (07:49)
[2020-04-03] MEDS: GLIMEPIRIDE 2 MG TAB PO SCH (07:50)
[2020-04-03] MEDS: CARVedilol 12.5 MG TAB PO SCH (07:50)
[2020-04-03] MEDS: CEPHALEXIN 500 MG CAP PO SCH ×2 (07:51→12:05)
[2020-04-03] MEDS: TORSEMIDE 20 MG TAB PO SCH (07:51)
[2020-04-03] MEDS: cloNIDine 0.1 MG TAB PO SCH (07:51)
[2020-04-03] MEDS: ASPIRIN 81 MG ENTERIC TAB PO SCH (07:51)
[2020-04-03] MEDS: DOCUSATE SODIUM 100 MG CAP PO PRN (09:00)
[2020-04-03 10:00] VITALS: BP 157/71
[2020-04-03 14:00] VITALS: BP 158/66
[2020-04-03] MEDS ORDERED: CEPH500C PO (15:30)
--- NOTE | 2020-04-03 22:38 | DS.PDOC ---
Discharge Summary General Date of Admission Mar 29, 2020 at 05:24 Date of Discharge 04/03/20 Discharge Summary PROCEDURES PERFORMED DURING STAY: Incision and drainage of perianal abscess DISCHARGE DIAGNOSES: Left Perianal abscess Sepsis Uncontrolled Diabetes patient refused insulin. 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 COMPLICATIONS/CHIEF COMPLAINT: Ren, Cellulitis, Sepsis. HOSPITAL COURSE: 75 yr old w a hx of noncompliance, diastolic CHF, CKD 4, u ncontrolled diabetes, HTN, dyslipidemia, and pacemaker placement who is admitted for management of sepsis secondary to perianal abscess and surrounding cellilitis s/p I&D doing well on keflex. Perianal abscess with cellulitis s/p I & D by Dr London on 03/30 continue keflex another 7 days with renal dose adjustment abscess fluid culture lactobacillus and few yeast. Blood cultures negative. Warm compresses/ Warm soaks three times or more per day. Sepsis secondary to perianal cellulitis with abscess with fever and leukocytosis resolved. Uncontrolled diabetes with ongoing hyperglycemia The patient continues to adamantly refuse insulin. As per PCP on 03/29 she has refused insulin for years Diabetic diet continue home meds. REN on CKD4: resolved. back to baseline after hydration calcitriol continue home torsemide, continue home losartan Macrocytic anemia Follow-up iron studies, B12 and folate Chronic diastolic CHF and hypertension continue Clonidine, Coreg continue home torsemide continue losartan Dyslipidemia continue Atorvastatin Morbid Obesity BMI 42.6 with coexisting diabetes complicates care Since the BMI >35 and the patient has DM, she is a candidate for bariatric surgery follow up PCP. DISCHARGE MEDICATIONS: Please see below. ALLERGIES: Please see below. PHYSICAL EXAMINATION ON DISCHARGE: VITAL SIGNS: Please see below. GEN: Obese, well developed, NAD HEENT: NCAT, PERRLA, EOMI, anicteric CVS: RRR, No Murmur Rub or Gallop LUNGS: CTAB ABDOMEN: Obese, normoactive sounds, NTND NEURO: CN 2-12 are grossly intact, speech is not dysarthric, ambulating per baseline with walker PSYCH: AO x 3 LABORATORY DATA: Please see below. IMAGING: CT of the abdomen and pelvis "IMPRESSION: 1. Bilateral perianal confluence and stranding extending posteriorly into the medial buttocks, left greater than right consistent with cellulitis and phlegmon. A definite luke abscess is not identified. 2. Cholelithiasis with layering dense material and multiple stones. 3. Old granulomatous disease of the spleen, liver and celiac nodes. 4. Minimal sigmoid diverticulosis without diverticulitis. " Chest x-ray there appears to be cardiomegaly, a pacemaker and prominent hilar lymph nodes but no acute process, but the final read is pending ACTIVITY: [As tolerated]. DIET: Carb consistent. DISPOSITION: Home, Self-Care. DISCHARGE INSTRUCTIONS: Follow up PMD in 1 week DISCHARGE CONDITION: [Stable]. TIME SPENT ON DISCHARGE: 35 minutes. Vital Signs/I&Os Vital Signs Date Time Temp Pulse Resp B/P (MAP) Pulse Ox O2 Delivery O2 Flow Rate FiO2 04/03/20 14:00 98.8 74 18 158/66 (96) 97 Room Air I&O- Last 24 Hours up to 6 AM 04/03/20 06:59 Intake Total 1440 ml Output Total 700 ml Balance 740 ml Laboratory Data Labs 24H Laboratory Tests 2 04/03/20 06:19: Nucleated Red Blood Cells % (auto) 0.0, Anion Gap 8, Glomerular Filtration Rate 31.7L, Calcium Level 8.8 04/03/20 11:19: Bedside Glucose (Misc Panel) 360H CBC/BMP Laboratory Tests 04/03/20 06:19 FSBS Laboratory Tests Test 04/03/20 11:19 Range/Units Bedside Glucose (Misc Panel) 360 83-110 MG/DL Microbiology Microbiology 03/30/20 Abscess Culture - Final, Complete Lactobacillus Species Yeast Like Organism 03/29/20 Respiratory Virus Panel (PCR) ([facility]) - Final, Complete 03/29/20 Blood Culture - Final, Complete NO GROWTH AFTER 5 DAYS 03/29/20 Blood Culture - Final, Complete NO GROWTH AFTER 5 DAYS Discharge Medications Scheduled Aspirin (Aspirin EC) 81 Mg Tab, 81 MG PO DAILY, (Reported) Atorvastatin Calcium (Atorvastatin Calcium) 20 Mg Tab, 20 MG PO QHS, (Reported) Calcitriol (Calcitriol) 0.25 Mcg Capsule, 0.25 MCG PO 3XW, (Reported) THURSDAY, THURSDAY AND THURSDAY Carvedilol (Coreg) 25 Mg Tab, 25 MG PO BID, (Reported) Cephalexin (Cephalexin) 500 Mg Capsule, 500 MG PO BID Clonidine HCl (Clonidine HCl) 0.1 Mg Tab, 0.1 MG PO BID, (Reported) Glimepiride (Glimepiride) 4 Mg Tab, 4 MG PO BID, (Reported) Isosorbide Mononitrate (Isosorbide Mononitrate ER) 60 Mg Tab.er.24h, 60 MG PO DAILY, (Reported) Linagliptin (Tradjenta) 5 Mg Tablet, 5 MG PO DAILY, (Reported) Losartan Potassium (Losartan Potassium) 50 Mg Tablet, 50 MG PO QHS, (Reported) Magnesium Chloride (Mag64) 64 Mg Tabcr, 64 MG PO QHS, (Reported) Torsemide (Torsemide) 10 Mg Tablet, 20 MG PO DAILY, (Reported) Scheduled PRN Docusate Sodium (Stool Softener) 100 Mg Cap, 100 MG PO DAILY PRN for CONSTIPATION, (Reported) Allergies Coded Allergies: bisoprolol (Verified Adverse Reaction, Unknown, 03/29/20) PUTS ME OUT ON CLOUD 9 propoxyphene (Verified Adverse Reaction, Unknown, 03/29/20) PUTS ME OUT ON CLOUD 9 simvastatin (Verified Adverse Reaction, Unknown, 03/29/20) PUTS ME OUT ON CLOUD 9 PATY ALDRIDGE MD Apr 03, 2020 22:38
== END 2020-04-03 16:50 | disposition home or self-care (01) | DRG 854 ==
LOC: M ED 23:33 → M ED INP 03-29 05:24 → M PCU 03-29 17:00 → M MS5PR 04-01 16:20
PROVIDERS: ADMIT Internal Medicine; ATTEND Internal Medicine Nephrology
PROC: 0W9N0ZZ Drainage of Female Perineum, Open Approach (ICD-10-PCS; principal; 2020-03-30)
DX: A41.9 Sepsis, unspecified organism (principal); K61.0 Anal abscess; L03.317 Cellulitis of buttock; N17.9 Acute kidney failure, unspecified; N18.4 Chronic kidney disease, stage 4 (severe); I50.32 Chronic diastolic (congestive) heart failure; I13.0 Hypertensive heart and chronic kidney disease with heart failure and stage 1 through stage 4 chronic kidney disease, or unspecified chronic kidney disease; Z68.41 Body mass index [BMI] 40.0-44.9, adult; G47.33 Obstructive sleep apnea (adult) (pediatric); E11.65 Type 2 diabetes mellitus with hyperglycemia; Z91.14 Patient's other noncompliance with medication regimen; E66.01 Morbid (severe) obesity due to excess calories; Z95.0 Presence of cardiac pacemaker; E78.5 Hyperlipidemia, unspecified; K80.20 Calculus of gallbladder without cholecystitis without obstruction; K57.30 Diverticulosis of large intestine without perforation or abscess without bleeding; Z79.82 Long term (current) use of aspirin; Z79.899 Other long term (current) drug therapy; Z88.8 Allergy status to other drugs, medicaments and biological substances; Z96.651 Presence of right artificial knee joint; D53.9 Nutritional anemia, unspecified

== ENCOUNTER → 2021-03-07 | Outpatient (REF) | payer MEDICARE ==
[~2021-03-07] MED LIST changes: +CALC1CAP31; +CALC1CAP31 PO; +CEPH500C PO; +ISOS1TAB36; +ISOS1TAB36 PO; -ISOS60TA2; +LOSA50TA88; +LOSA50TA88 PO; +TORS10TA3; +TRAD5TAB PO
[2021-03-07 15:33] LABS: HEMATOCRIT 35.8 % (36.0-47.0); MEAN CORPUSCULAR HEMOGLOBIN 32.3 pg (27.0-33.0); MEAN CORPUSCULAR HGB CONC 33.5 g/dl (32.0-36.5); MEAN CORPUSCULAR VOLUME 96.2 fl (80.0-96.0); PLATELET COUNT, AUTOMATED 229 10^3/uL (150-450); RED BLOOD COUNT 3.72 10^6/uL (4.00-5.40)
[2021-03-07 15:48] LABS: HEMOGLOBIN A1c 12.7 %
[2021-03-07 16:43] LABS: ALBUMIN 3.4 GM/DL (3.2-5.2); BILIRUBIN,TOTAL 0.5 MG/DL (0.2-1.0); CHOLESTEROL RISK RATIO 2.585 (<5); CREATININE FOR GFR 2.18 MG/DL (0.55-1.30); GLOMERULAR FILTRATION RATE 23.3 (>39); TOTAL PROTEIN 6.6 GM/DL (6.4-8.2)
== END ==
LOC: M SFHCPLAZ 13:50
PROVIDERS: ATTEND Physician Assistant
DX: E11.65 Type 2 diabetes mellitus with hyperglycemia (principal); D63.1 Anemia in chronic kidney disease; E78.5 Hyperlipidemia, unspecified

== ENCOUNTER → 2021-04-03 | Outpatient (REF) | payer MEDICARE | LOC: M LAB REF 17:06 | PROVIDERS: ATTEND Nurse Practitioner Family | DX: E83.42 Hypomagnesemia (principal) ==

== ENCOUNTER 2021-08-09 13:41 | Emergency (ER) | payer MEDICARE ==
[~2021-08-09] VITALS: Ht 160 cm; Wt 95.5 kg
[~2021-08-09 13:41] MED LIST changes: -KLOR10TA76 PO; +POTA-136 PO
--- OUTSIDE RECORDS SUMMARY | 2021-08-09 13:52 | CCD | Continuity of Care Document ---
Author Author Valentina JEFFERY PA-C Organization Unknown Address [id number] [place] [id number] Phone [phone] Care Team Providers Care Director Of Sales And Marketing Name Role Phone Savannah Dowling MD AUT[facility] [phone] Irma Pitts-C AUTM [phone] Problems Active Problems Provider Date Chronic diastolic heart failure Joanna Jeffery PA-C Onset: 02/03/2013 Benign hypertensive heart disease with congestive card iac failure Joanna Jeffery, PA-C Onset: 01/19/2013 Electrocardiogram abnormal Joanna Jeffery, PA-C Onset: 10/01 Pure hypercholesterolemia Joanna Jeffery, PA-C Onset: 2011 Morbid obesity Joanna Jeffery, PA-C Onset: 10/01/2011 Complete atrioventricular block Joanna Jeffery, PA-C Onset: 10/01/2011 Cardiac pacemaker in situ Joanna Jeffery PA-C Onset: 2011 Obstructive sleep apnea syndrome Joanna Jeffery, PA-C Onset: 06/22/2013 Aortic valve disorder Joanna Jeffery, PA-C Onset: 09/26/2015 Mitral leaflet abnormality Joanna Jeffery, PA-C Onset: 09/26 Obesity Joanna Jeffery PA-C Onset: 03/27/2016 Essential hypertension Suraj Long MD Onset: 7 Dietary management surveillance Suraj Long MD Onset: 05/26/2017 Mixed hyperlipidemia BAO Diaz Onset: 11/30/2017 Social History Type Date Description Comments Sex Unknown Tobacco Use Start: Unknown Never Smoked Cigarettes ETOH Use Does not consume alcohol Tobacco Use Start: Unknown Patient has never smoked Smoking Status Reviewed: 02/07/21 Patient has never smoked Exercise Type/Frequency Does not exercise curren tly Exercise Limitations Joint Pain knees Exercise Limitations Fatigue Allergies and adverse reactions Active Allergies Criticality Reaction | Severity Comments Date Darvocet Unable to assess criticality unknown 06/21/2013 Zebeta Unable to assess criticality unknown 06/21/2013 Zocor Unable to assess criticality unknown 06/21/2013 Inactive Allergies NKDA Unable to assess criticality 10/15/2006 Medications Active Medications SIG Qnty Indications Ordering Provide r Date Mag64 535(64mg) mg Tablets ER 1 by mouth daily 90tabs I50.32 Paulo Pearson MD 07/26/2020 Torsemide 10mg Tablets 2 by mouth every morning and occasionally 1 by mouth in afternoon (when remembers) I50.32 Irma Pitts PA-C 07/25/2020 Losartan Potassium 50mg Tablets 1 by mouth every day Deborah Lam [facility] 019 Clonidine HCL 0.1mg Tablets 1 by mouth tid Deborah Lam [facility] 019 Tradjenta 5mg Tablets 1 by mouth every day Unknown 06/02/2018 Isosorbide Mononitrate ER 60mg Tablets ER 24HR 1 by mouth every day 90tabs I10 Suraj Long MD 11/27/2016 Glimepiride 4mg Tablets 1 by mouth bid Unknown 08/19/2016 Docusate Sodium 100mg Capsules 1 by mouth every day as needed Unknown 12/26/2015 Atorvastatin Calcium 20mg Tablets 1 by mouth every day 90tabs Suraj Long MD 12/26/2015 Tylenol Extra Strength 500mg Table ts 1 po prn Yulisa Gagnon ANP 01/18/[address] 1 PO daily Tiffanie Carlin PA 10/15/2006 Coreg 25mg Tablets 1 b y mouth twice a day 180tabs I50.32 Suraj Long MD 10/15/2006 Immunizations Description No Information Available Vital Signs Date Vital Result Comment 02/07/2021 10:43am Weight 219.00 lb Height 59 inches 4'11" BMI (Body Mass Index) 44.2 kg/m2 Heart Rate 71 /min BP Systolic Sitting 112 mmHg Ra, large cuff BP Diastolic Sitting 60 mmHg Ra, large cuff 07/26/2020 10:54am Weight 214.00 lb Height 59 inches 4'11" BMI (Body Mass Index) 43.2 kg/m2 Heart Rate 69 /min BP Systolic Sitting 128 mmHg large cuff, Ra BP Diastolic Sitting 56 mmHg large cuff, Ra Results Test Acquired Date Facility Test Result H/L Range Note Renal Profile 04/03/2021 [facility] ([facility])- - Glucose 458 High 70-106 Blood Urea Nitrogen 28.5 High 7-18 Creatinine 2.0 High 0.55-1.3 GFR (Calculated) 24 Sodium 134.5 Low 135-145 Potassium 5.13 3.5-5.5 Chloride 96 94-110 Carbon Dioxide 27.4 21-32 Calcium 9.1 8.5-10.1 Phosphorus 3.5 Albumin 3.6 3.2-5.2 CBC without Differential 04/03/2021 [facility] ([facility])- - White Blood Count 9.8 4.0-10.0 Red Blood Count 3.72 Low 4.00-5.40 Platelets 177 172-450 Hemoglobin 12.1 12.0-16.0 Hematocrit 36.9 36.0-47.0 Procedures Date Code Description Status 07/03/2021 74881 Pacer Interrogation Any Leads Co mpleted 02/07/2021 02561 Office/Outpatient Established Mo d MDM 30-39 Min Completed 02/07/2021 17406 ECG 12-Lead Completed Medical Devices Description No Information Available Encounters Type Date Location Provider Dx Diagnosis Office Visit 02/07/2021 10:45a Main Office BAO Catherine I11 .0 Hypertensive heart disease with heart failure I50.32 Chronic diastolic (congestiv e) heart failure Z95.0 Presence of cardiac pacemake r I44.2 Atrioventricular block, comp lete G47.33 Obstructive sleep apnea (elli lt) (pediatric) R94.31 Abnormal electrocardiogram [ ECG] [EKG] Z71.3 Dietary counseling and surve illance Assessments Date Code Description Provider 07/03/2021 I44.2 Atrioventricular block, complete Joanna Jeffery PA-C 02/07/2021 I11.0 Hypertensive heart disease with heart failure BAO Catherine 02/07/2021 I50.32 Chronic diastolic (congestive) h eart failure BAO Catherine 02/07/2021 Z95.0 Presence of cardiac pacemaker Ca BAO Jones 02/07/2021 I44.2 Atrioventricular block, complete BAO Catherine 02/07/2021 G47.33 Obstructive sleep apnea (adult) (pediatric) ABO Catherine 02/07/2021 R94.31 Abnormal electrocardiogram [ECG] [EKG] BAO Catherine 02/07/2021 Z71.3 Dietary counseling and surveilla nce BAO Catherine Plan of Treatment Future Appointment(s):* 01/08/2022 9:30 am - Joanna Jeffery PA-C at Main Office * 08/13/2021 1:30 pm - BAO Catherine at Main Office 02/07/2021 - BAO Catherine* I11.0 Hypertensive heart disease with heart failure* Recommendations:* Continue torsemide, Coreg, and losartan therapy at the current dosages Advised patient to monitor blood pressures at home and to alert our office with readings >140/>90 * I50.32 Chronic diastolic (congestive) heart failure* Recommendations:* Continue torsemide, Coreg, and losartan at the current dosages Please alert our office with a weight gain of more than 3 pounds, onset of shortness of breath, or lower extremity edema * Z95.0 Presence of cardiac pacemaker* Recommendations:* Continue 91 day home/12 month office pacer checks * I44.2 Atrioventricular block, complete * G47.33 Obstructive sleep apnea (adult) (pediatric)* Recommendations:* Reinforced the consistent use of CPAP will assist in blood pressure reduction and promote nocturnal blood pressure dipping patterns. Negative effects of hypoxia during sleep were reviewed including impaired daytime cognition and level of alertness. * R94.31 Abnormal electrocardiogram [ECG] [EKG]* Recommendations:* No further evaluation is needed at this time. * Z71.3 Dietary counseling and surveillance* Recommendations:* Recommended for patient to follow a more whole food diet. Advised patient to avoid overly processed foods and packaged foods. Advised patient to avoid sodas, juices and other liquid calories. Recommended at least 30 minutes of exercise 3 days a week. * All * Follow up:* Follow up in 6 months Functional Status Functional Condition Comment Date Status Independent with all ADL's Activ e Requires assistance with ambulating with cane Active Mental Status Description No Information Available Referrals Description No Information Available
--- OUTSIDE RECORDS SUMMARY | 2021-08-09 13:52 | CCD ---
Author Author [facility] Organization [facility] Address Unknown Phone Unavailable Care Team Providers Care Slunk Skin Curer Name Role Phone DEMETRA, L JESUS PA Unavailable Unavailable DEMETRA, L JESUS PA Unavailable Unavailable DEMETRA, L JESUS PA Unavailable Unavailable DEMETRA, L JESUS PA Unavailable Unavailable DEMETRA, L JESUS PA Unavailable Unavailable DEMETRA, L JESUS PA Unavailable Unavailable DEMETRA, L JESUS PA Unavailable Unavailable DEMETRA, L JESUS PA Unavailable Unavailable DEMETRA, L JESUS PA Unavailable Unavailable DEMETRA, L JESUS PA Unavailable Unavailable DEMETRA, L JESUS PA Unavailable Unavailable DEMETRA, L JESUS PA Unavailable Unavailable DEMETRA, L JESUS PA Unavailable Unavailable DEMETRA, L JESUS PA Unavailable Unavailable DEMETRA, L JESUS PA Unavailable Unavailable DEMETRA, L JESUS PA Unavailable Unavailable Re-disclosure Warning The records that you are about to access may contain information from federally-assisted alcohol or drug abuse programs. If such information is present, then the following federally mandated warning applies: This information has been disclosed to you from records protected by federal confidentiality rules (42 CFR part 2). The federal rules prohibit you from making any further disclosure of this information unless further disclosure is expressly permitted by the written consent of the person to whom it pertains or as otherwise permitted by 42 CFR part 2. A general authorization for the release of medical or other information is NOT sufficient for this purpose. The Federal rules restrict any use of the information to criminally investigate or prosecute any alcohol or drug abuse patient.The records that you are about to access may contain highly sensitive health information, the redisclosure of which is protected by Article 27-F of the [facility] Public Health law. If you continue you may have access to information: Regarding HIV / AIDS; Provided by facilities licensed or operated by the [facility] Office of Mental Health; or Provided by the [facility] Office for People With Developmental Disabilities. If such information is present, then the following [facility] mandated warning applies: This information has been disclosed to you from confidential records which are protected by state law. State law prohibits you from making any further disclosure of this information without the specific written consent of the person to whom it pertains, or as otherwise permitted by law. Any unauthorized further disclosure in violation of state law may result in a fine or longterm sentence or both. A general authorization for the release of medical or other information is NOT sufficient authorization for further disc losure. Family History Family Member Name Family Member Gender Family Member Status Date o f Status Description Data Source(s) Unknown Unknown Problem [facility] ([facility]) Encounters Encounter Providers Location Date Indications Data Source(s ) Unknown [address] [facility] [id number] 07/22/2021 12:00:00 AM EDT [facility]1 ([facility]) Unknown [address] [facility] [id number] 05/01/2021 12:00:00 AM EDT [facility] Unknown [address] [facility] [id number] 03/26/2021 12:00:00 AM EDT eCW1 ([facility]) Outpatient [address] [facility] [id number] 03/04/2021 12:00:00 AM EDT [facility]CW1 ([facility]) Unknown [address] [facility] [place] [address] 02/20/2021 12:00:00 AM EDT eCW1 ([facility]) Outpatient Attender: JESUS GORE Main Office 02/07/2021 1 0:45:00 AM EDT [facility] ([facility]) Unknown [address] [facility] [place] [address] 01/14/2021 12:00:00 AM EDT eCW1 ([facility]) [place] [address] [facility] [address] [place] [address] 12/25/2020 12:00:00 AM EDT eCW1 ([facility]) Medications Medication Brand Name Start Date Product Form Dose Route Admi nistrative Instructions Pharmacy Instructions Status Indications Reaction Description Data Source(s) 64 mg 09/25/2020 12:00:00 AM EST tablet,delayed release (DR/EC) 180 TAKE ONE TABLET BY MOUTH TWO TIMES A DAY TAKE ONE TABLET BY MOUTH TWO TIMES A DAY SOLD: 09/25/2020 [facility] 64 mg 07/27/2020 12:00:00 AM EST tablet,delayed release (DR/EC) 90 TAKE ONE TABLET BY MOUTH EVERY DAY TAKE ONE TABLET BY MOUTH EVERY DAY SOLD: 07/28/2020 [facility] Mag64 07/26/2020 12:00:00 AM EST ORAL active [facility] ([facility]) torsemide 10 MG Oral Tablet Torsemide 07/25/2020 12:00:00 AM EST ORAL active [facility] ([facility]) 5 mg 07/20/2020 12:00:00 AM EDT tablet 90 TAKE ONE TABLET BY MOUTH EVERY DAY TAKE ONE TABLET BY MOUTH EVERY DAY SOLD: 07/21/2020 [facility] atorvastatin 20 MG Oral Tablet ATORVASTATIN CALCIUM 07/04/2020 1 2:00:00 AM EDT tablet 90 TAKE ONE TABLET BY MOUTH EVERY D AY TAKE ONE TABLET BY MOUTH EVERY DAY SOLD: 10/01/2020 [facility] atorvastatin 20 MG Oral Tablet ATORVASTATIN CALCIUM 07/04/2020 1 2:00:00 AM EDT tablet 90 TAKE ONE TABLET BY MOUTH EVERY D AY TAKE ONE TABLET BY MOUTH EVERY DAY SOLD: 07/05/2020 [facility] 50 mg 06/29/2020 12:00:00 AM EDT tablet 90 TAKE ONE TABLET BY MOUTH EVERY DAY TAKE ONE TABLET BY MOUTH EVERY DAY SOLD: 07/05/2020 [facility] Clonidine Hydrochloride 0.1 MG Oral Tablet CLONIDINE HCL 06/20/2020 12:00:00 AM EDT tablet 270 TAKE 2 TABLETS B Y MOUTH IN THE MORNING, THEN TAKE ONE TABLET BY MOUTH IN THE EVENING TAKE 2 TABLETS BY MOUTH IN THE MORNING, THEN TAKE ONE TABLET BY MOUTH IN THE EVENING SOLD: 07/05/2020 [facility] 60 mg 05/25/2020 12:00:00 AM EDT tablet extended release 24 hr 90 TAKE ONE TABLET BY MOUTH EVERY DAY TAKE ONE TABLET BY MOUTH EVERY DAY SOLD: 08/21/2020 [facility] 0.25 mcg 05/23/2020 12:00:00 AM EDT capsule 60 TAKE ONE TABLET BY MOUTH FIVE DAYS PER WEEK (THURSDAY-THURSDAY) TAKE ONE TABLET BY MOUTH FIVE DAYS PER [place] (THURSDAY-THURSDAY) SOLD: 08/21/2020 [facility] glimepiride 4 MG Oral Tablet GLIMEPIRIDE 05/22/2020 12:00:00 AM EDT t ablet 180 TAKE ONE TABLET BY MOUTH TWICE A DAY TAKE ONE TABLET BY MOUT H TWICE A DAY SOLD: 08/21/2020 [facility] 10 mg 05/01/2020 12:00:00 AM EDT tablet 180 TAKE ONE TABLET BY MOUTH TWO TIMES A DAY TAKE ONE TABLET BY MOUTH TWO TIMES A DAY SOLD: 07/18/2020 [facility] Insurance Providers Payer name Policy type / Coverage type Policy ID Covered green party ID Covered green party's relationship to higuera Policy Higuera Plan Information [employer] Medig[employer] Part B [id number] .5988.0 Self [id number] [employer] Med[employer] Part B [id number] 2.616212.3.227.99.572 .5988.0 Self [id number] [employer] Medigap Part B [id number] .[id number] .5988.0 Self [id number] [employer] Medigap Part B [id number] .[id number] .5988.0 Self [id number] [employer] Med[employer] Part B [id number] 2.1.111148.3.227.99.572 .5988.0 Self [id number] [employer] [place] [id number] Self [employer] Medigap Part B [id number] 2.16.840.1.983050.3.227.99.572 .5988.0 Self [id number] [employer] Part B [id number] 2.16.840.1.307208.3.227.99.572 .5988.0 Self [id number] [employer] Part B [id number] 2.16840.1.599912.3.227.99.572 .5988.0 Self [id number] [employer] Part B [id number] 2.16840.1.241709.3.227.99.572 .5988.0 Self [id number] [employer] Part B [id number] 2.16840.1.980224.3.227.99.572 .5988.0 Self [id number] [employer] Part B [id number] 2.16840.1.017790.3.227.99.572 .5988.0 Self [id number] [employer] Part B [id number] 2.16840.1.791614.3.227.99.572 .5988.0 Self [id number] [employer] Part B [id number] 2.16840.1.922619.3.227.99.572 .5988.0 Self [id number] [employer] Part B [id number] 2.16840.1.898748.3.227.99.572 .5988.0 Self [id number] [employer] Med[employer] Part B [id number] 2.16840.1.875434.3.227.99.572 .5988.0 Self [id number] [employer] Medigap Part B [id number] Self [employer] Medig[employer] Part B [id number] 2.16840.1.253301.3.227.99.572 .5988.0 Self [id number] [employer] Part B [id number] 2.16.840.1.805077.3.227.99.572 .5988.0 Self [id number] [employer] Medig[employer] Part B [id number] 2.16.840.1.132123.3.227.99.572 .5988.0 Self [id number] Medicaid Medigap Part B [id number] 2.16.840.1.643853.3.227.99.572.5988 .0 Self [id number] Medicaid Medigap Part B [id number] 2.16.840.1.637518.3.227.99.572.5988 .0 Self [id number] Medicaid Medigap Part B [id number] 2.16.840.1.157126.3.227.99.572.5988 .0 Self [id number] Medicaid Medigap Part B [id number] 2.16.840.1.645895.3.227.99.572.5988 .0 Self [id number] Medicaid Medigap Part B [id number] 2.16.840.1.668954.3.227.99.572.5988 .0 Self [id number] Medicaid Medigap Part B [id number] 2.16.840.1.841175.3.227.99.572.5988 .0 Self [id number] Medicaid Medigap Part B [id number] 2.16.840.1.913088.3.227.99.572.5988 .0 Self [id number] Medicaid Medigap Part B [id number] 2.16.840.1.049390.3.227.99.572.5988 .0 Self [id number] Medicaid Medigap Part B [id number] Self 1 1 Medicaid Medigap Part B [id number] 2.16.840.1.201563.3.227.99.572.5988 .0 Self [id number] [facility] Medigap Part B [id number] 2.16.840.1.190898.3.227.99.572.5988.0 Self [id number] Medicare (Part B) Medicare Primary [id number] 2.16.840.1.590342.3.227.99.572.5988.0 Self 06 [id number] [facility] Medigap Part B [id number] 2.16.840.1.785929.3.227.99.572.5988.0 Self [id number] [facility] Medigap Part B [id number] 2.16.840.1.511588.3.227.99.572.5988.0 Self [id number] Medicare (Part B) Medicare Primary [id number] 2.16.840.1.753987.3.227.99.572.5988.0 Self 06 [id number] MEDICARE [id number] SP [id number] A Medicare (Part B) Medicare Primary [id number] 2.16.840.1.305183.3.227.99.572.5988.0 Self [id number] Medicare (Part B) Medicare Primary [id number] Self Medicare (Part B) Medicare Primary [id number] 2.16.840.1.403355.3.227.99.572.5988.0 Self [id number] [facility] Medigap Part B [id number] 2.16.840.1.648161.3.227.99.572.5988.0 Self [id number] [facility] Medigap Part B [id number] 2.16.840.1.518209.3.227.99.572.5988.0 Self [id number] Medicare (Part B) Medicare Primary [id number] 2.16.840.1.437138.3.227.99.572.5988.0 Self [id number] [facility] Medigap Part B [id number] Self Medicare (Part B) Medicare Primary [id number] 2.16.840.1.360404.3.227.99.572.5988.0 Self 06 [id number] [facility] Medigap Part B [id number] 2.16.840.1.277990.3.227.99.572.5988.0 Self [id number] Medicare Medicare Primary [id number] Self [facility] Medigap Part B [id number] 2.16.840.1.715731.3.227.99.572.5988.0 Self [id number] [facility] Medigap Part B [id number] 2.16.840.1.781907.3.227.99.572.5988.0 Self [id number] Medicare (Part B) Medicare Primary [id number] 2.16.840.1.734356.3.227.99.572.5988.0 Self 06 [id number] Medicare (Part B) Medicare Primary [id number] 2.16.840.1.713965.3.227.99.572.5988.0 Self [id number] [facility] Medigap Part B [id number] 2.16.840.1.296279.3.227.99.572.5988.0 Self [id number] Medicare (Part B) Medicare Primary [id number] 2.16.840.1.674021.3.227.99.572.5988.0 Self 06 [id number] [employer] [facility] [facility] OPTIONS [id number] SP [id number] [employer] [facility] OPTIONS [id number] SP [id number] MEDICARE C [id number] S [id number] AARP S [id number] 11 [id number] S [id number] 18 [id number] MEDICARE P [id number] S [id number] A [employer] Medigap Part B [id number] 2.16.840.1.473282.3.227. 99.572.5988.0 Self [id number] ANSI-Medicare Part B [id number] ANSI-Commercial [id number]-[id number] ANSI-Medicare Part B [id number] ANSI-Commercial [id number]-[id number]-[id number]-[id number] [employer] [facility] Part B [id number] 2.16.840.1.331820.3.227. 99.572.5988.0 Self [id number] ANSI-Commercial [id number] ANSI-Medicare Part B [id number] ANSI-Medicare Part B [id number] ANSI-Commercial [id number]-[id number]-[id number] [id number]-y5s4-4x8x-[id number] ANSI-Commercial [id number] ANSI-Medicare Part B [id number] ANSI-Commercial [id number]-[id number]-[id number] [id number]-80p4-nu8h-[id number] ANSI-Medicare Part B [id number] ANSI-Commercial [id number] [id number] ANSI-Medicare Part B [id number] ANSI-Medicare Part B [id number] ANSI-Commercial [id number] [id number] ANSI-Medicare Part B [id number] ANSI-Commercial [id number]-7y5w-[id number] ANSI-Commercial 45nn29w3-of1r-63j5-9j2o-ahgx61qif9ih 75dg53c6-ya4n-64m5-9k2m-figs17yvy3kj ANSI-Medicare Part B [id number] ANSI-Commercial [id number]-[id number] [id number]-[id number] ANSI-Medicare Part B [id number] ANSI-Medicare Part B [id number] ANSI-Commercial [id number]-9r3f-r17f-[id number] ANSI-Commercial [id number] ANSI-Medicare Part B [id number] [employer] Med[employer] Part B [id number] .1.040095.3.227. 99.572.5988.0 Self [id number] [employer] Med[employer] Part B [id number] 11.06.840.1.549845.3.227. 99.572.5988.0 Self [id number] ANSI-Commercial [id number] ANSI-Medicare Part B [id number] MEDICARE [id number] SP [id number] A [employer] Med[employer] Part B [id number] 2.16.840.1.118580.3.227. 99.572.5988.0 Self [id number] [employer] Med[employer] Part B [id number] 2.16.840.1.374014.3.227. 99.572.5988.0 Self [id number] [employer] Part B [id number] 2.16.840.1.331142.3.227. 99.572.5988.0 Self [id number] [employer] Part B [id number] 2.16.840.1.709329.3.227. 99.572.5988.0 Self [id number] [employer] Part B [id number] 2.16.840.1.988129.3.227. 99.572.5988.0 Self [id number] [employer] Med[employer] Part B [id number] Self [facility] OPTIONS [id number] SP [id number] MEDICARE [id number] A [id number] A MEDICARE [id number] Problems, Conditions, and Diagnoses No Information Surgeries/Procedures Procedure Description Date Indications Data Source(s) INTERROGATION EVAL IN PERSON 1/DUAL/NAIL SPECIALIST LEAD PM 2020 12:00:00 AM EDT [facility] ([facility]) ECG ROUTINE ECG W/LEAST 12 LDS W/I&R 02/07/2021 12:00: 00 AM EDT [facility] ([facility]) OFFICE OUTPATIENT VISIT 25 MINUTES 02/07/2021 12:00:00 AM EDT [facility] ([facility]) INTERROGATION EVAL IN PERSON 1/DUAL/NAIL SPECIALIST LEAD PM 2020 12:00:00 AM EDT [facility] ([facility]) INTERROGATION EVAL IN PERSON 1/DUAL/NAIL SPECIALIST LEAD PM 2019 12:00:00 AM EDT [facility] ([facility]) Results ID Date Data Source [id number] 04/03/2021 09:28:00 AM EDT [facility] ([facility]) Name Value Range Interpretation Code Description Data Eneida rce(s) Supporting Document(s) White Blood Count 9.8 4.0-10.0 [facility] ([facility]) Red Blood Count 3.72 4.00-5.40 [facility] ([facility]) Platelets 177 172-450 [facility] Hemoglobin 12.1 12.0-16.0 [facility] ([facility]) Hematocrit 36.9 36.0-47.0 [facility] ([facility]) ID Date Data Source [id number] 04/03/2021 09:28:00 AM EDT [facility] ([facility]) Name Value Range Interpretation Code Description Data Eneida rce(s) Supporting Document(s) Blood Urea Nitrogen 28.5 7-18 [facility] ([facility]) Glucose 458 70-106 [facility] Glomerular filtration rate/1.73 sq M.pre dicted [Volume Rate/Area] in Serum or Plasma by Creatinine-based formula (MDRD) 24 [facility] Creatinine 2.0 0.55-1.3 [facility]) Sodium 134.5 135-145 [facility] Chloride 96 94-110 [facility] Potassium 5.13 3.5-5.5 [facility] Carbon Dioxide 27.4 21-32 [facility] ([facility]) Calcium 9.1 8.5-10.1 [facility] Albumin 3.6 3.2-5.2 [facility] Phosphorus 3.5 [facility] ([facility]) ID Date Data Source LIPID PANEL (CARDIAC RISK) 03/07/2021 12:00:00 AM EDT eCW1 ( [facility]) Name Value Range Interpretation Code Description Data Eneida rce(s) Supporting Document(s) Cholesterol in HDL [Moles/volume] in Serum or Plasma 41 >40 HDL CHOLESTEROL eCW1 ([facility]) Triglyceride [Mass/volume] in Serum or Plasma by calculation 207 <150 TRIGLYCERIDES LEVEL eCW1 ([facility]) Cholesterol in LDL [Mass/volume] in Serum or Plasma by calculation 24 <100 LDL CHOLESTEROL eCW1 ([facility]) Cholesterol [Moles/volume] in Serum or Plasma 106 <200 CHOLESTEROL LEVEL eCW1 ([facility]) 2.585 <5 CHOLESTEROL RISK RATIO eCW1 ([facility]) 65 NON-HDL-C eCW1 ([facility]) ID Date Data Source [id number] 03/07/2021 12:00:00 AM EDT eCW1 ([facility]) Name Value Range Interpretation Code Description Data Eneida rce(s) Supporting Document(s) EST AVE GLUCOSE eCW1 ([facility]) Use other A1c listing eCW1 ([facility]) HEMOGLOBIN A1c Fill Out f or Reporting eCW1 ([facility]) Hemoglobin A1c/Hemoglobin.total in Blood 12.7 HEMOGLOBIN A1c eCW1 ([facility]) ID Date Data Source Comprehensive Metabolic Profile (CMP) 03/07/2021 12:00:00 AM EDT eCW1 ([facility]) Name Value Range Interpretation Code Description Data Eneida rce(s) Supporting Document(s) 419 70-100 GLUCOSE, FASTING eCW1 ([facility]) 2.18 0.55-1.30 CREATININE FOR GFR eCW1 ([facility]) 23 7-18 BLOOD UREA NITROGEN eCW1 ([facility]) 23.3 >39 GLOMERULAR FILTRATION RATE eCW 1 ([facility]) 5.0 3.5-5.1 POTASSIUM SERUM eCW1 ([facility]) 133 136-145 SODIUM LEVEL eCW1 ([facility]) 27 21-32 CARBON DIOXIDE LEVEL eCW1 ([facility]) 99 98-107 CHLORIDE LEVEL eCW1 ([facility]) 9.0 8.8-10.2 CALCIUM LEVEL eCW1 ([facility]) 15 12-78 ALT/SGPT eCW1 ([facility]) 139 45-117 ALKALINE PHOSPHATASE eCW1 ([facility]) 7 7-37 AST/SGOT eCW1 ([facility]) 3.4 3.2-5.2 ALBUMIN eCW1 ([facility]) 0.5 0.2-1.0 BILIRUBIN,TOTAL eCW1 ([facility]) 6.6 6.4-8.2 TOTAL PROTEIN eCW1 ([facility]) 1.1 1.2-2.2 ALBUMIN/GLOBULIN RATIO eCW1 ([facility]) ID Date Data Source CBC - Complete Blood Count 03/07/2021 12:00:00 AM EDT eCW1 ( [facility]) Name Value Range Interpretation Code Description Data Eneida rce(s) Supporting Document(s) 12.0 12.0-15.5 HEMOGLOBIN eCW1 ([facility]) 3.72 4.00-5.40 RED BLOOD COUNT eCW1 ([facility]) 11.0 4.0-10.0 WHITE BLOOD COUNT eCW1 ([facility]) 32.3 27.0-33.0 MEAN CORPUSCULAR HEMOGLOB IN eCW1 ([facility]) 33.5 32.0-36.5 MEAN CORPUSCULAR HGB CONC eCW1 ([facility]) 96.2 80.0-96.0 MEAN CORPUSCULAR VOLUME e CW1 ([facility]) 35.8 36.0-47.0 HEMATOCRIT eCW1 ([facility]) 229 150-450 PLATELET COUNT, AUTOMATED eCW1 ([facility]) 12.7 11.5-14.5 RED CELL DISTRIBUTION WID TH eCW1 ([facility]) Procedure Social History Code Duration Value Status Description Data Source(s ) Smoking 03/04/2021 12:00:00 AM EDT Never Smoker completed Never S moker eCW1 ([facility]) Smoking 03/04/2021 12:00:00 AM EDT Never Smoker completed Never S moker eCW1 ([facility]) Smoking 03/04/2021 12:00:00 AM EDT Never Smoker completed Never S moker eCW1 ([facility]) Smoking 03/04/2021 12:00:00 AM EDT Never Smoker completed Never S moker eCW1 ([facility]) Smoking 02/07/2021 12:00:00 AM EDT Patient has never smoked co mpleted Patient has never smoked MEDENT ([facility]) Vital Signs ID Date Data Source UNK Name Value Range Interpretation Code Description Data Source(s) Body weight 213.8 [lb_av] 213.8 [lb_av] eCW1 ([facility]) Body height 59.5 [in_i] 59.5 [in_i] eCW1 ([facility]) Body mass index (BMI) [Ratio] 42.46 kg/m2 42.46 kg/m2 eCW1 ([facility]) Heart rate 69 /min 69 /min eCW1 ([facility]) Respiratory rate 18 /min 18 /min eCW1 ([facility]) Body temperature 96.4 [degF] 96.4 [degF] eCW1 ( [facility]) Systolic blood pressure 120 mm[Hg] 120 mm[Hg] e CW1 ([facility]) Diastolic blood pressure 72 mm[Hg] 72 mm[Hg] eCW1 ([facility]) Systolic blood pressure--sitting 112 mm[Hg] 112 mm[Hg] MEDENT ([facility]) Ra, large cuff Body weight 219.00 [lb_av] 219.00 [lb_av] MEDEN T ([facility]) Body height 59 [in_i] 59 [in_i] MEDENT ([facility] 4'11" Body mass index (BMI) [Ratio] 44.2 kg/m2 44.2 k g/m2 MEDENT ([facility]) Heart rate 71 /min 71 /min MEDENT ([facility]) Diastolic blood pressure--sitting 60 mm[Hg] 60 mm[Hg] MEDENT ([facility]) Ra, large cuff Body weight 214.00 [lb_av] 214.00 [lb_av] MEDEN T ([facility]) Systolic blood pressure--sitting 128 mm[Hg] 128 mm[Hg] MEDENT ([facility]) large cuff, Ra Body height 59 [in_i] 59 [in_i] MEDENT [facility] 4'11" Body mass index (BMI) [Ratio] 43.2 kg/m2 43.2 k g/m2 MEDENT ([facility]) Heart rate 69 /min 69 /min MEDENT ([facility]) Diastolic blood pressure--sitting 56 mm[Hg] 56 mm[Hg] MEDENT ([facility]) large cuff, Ra
--- OUTSIDE RECORDS SUMMARY | 2021-08-09 13:52 | CCD | Continuity of Care Document ---
Author Author Valentina JEFFERY PA-C Organization Unknown Address [address] [place] [address] Phone [phone] Care Team Providers Care Apprentice Pattern Maker Name Role Phone Savannah Dowling MD AUTM [phone] Irma Pitts-C AUTM [phone] Problems Active Problems Provider Date Chronic diastolic [...] 1 by mouth every day Deborah Lam [facility] 019 Clonidine HCL 0.1mg Tablets 1 by mouth tid Deborah Lam [facility] 019 Tradjenta 5mg Tablets 1 by mouth [...] 36.0-47.0 Procedures Date Code Description Status 07/03/2021 32837 Pacer Interrogation Any Leads Co mpleted 02/07/2021 31818 Office/Outpatient Established Mo d MDM 30-39 Min Completed 02/07/2021 59377 ECG 12-Lead Completed Medical Devices Description No [...] 02/07/2021 G47.33 Obstructive sleep apnea (adult) (pediatric) BAO Catherine 02/07/2021 R94.31 Abnormal electrocardiogram [ECG] [EKG] [...]
--- OUTSIDE RECORDS SUMMARY | 2021-08-09 13:52 | CCD ---
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 Active confirmed 847319089 Problem Obesity (BMI 35.0-39.9 without comorbidity) E66.01 Active confirmed 689039720 Problem Uncontrolled type 2 diabetes mellitus with hyperglycemia E11.65 Active confirmed 471312905 Problem HTN (hypertension) I10 Active confirmed 3 5586554 Problem CKD (chronic kidney disease) stage 4, GFR 15-29 ml/min N18.4 Active confirmed 477245049 Problem Chronic kidney disease, stage 3 (moderate) N18.3 Active confirmed 826966606 Problem Type 2 diabetes mellitus with diabetic chronic kidney disease E11.22 Active confirmed 81830789 ALLERGIES Allergen (clinical drug ingredient) Drug/Non Drug Allergy do cumented on EMR Reaction Allergy Type Onset Date Status Darvocet-N 100 unknown Drug Allergy Active Zebeta unknown Drug Allergy Active simvastatin Zocor([facility] Code:[address]-92) unknown Drug Allergy Active ENCOUNTERS from 1945 to 2021-07-23 Encounter Location Date Provider Diagnosis [address] [phone] [place] [address] Jul, Dacia Chapman Uncontrolled type 2 diabetes mellitus with hyperglycemia E11.65 IMMUNIZATIONS Vaccine Route Administration Date Status Influenza 6mo & up Fluzone Unknown Jun 10, 2017 Other s Influenza 6mo & up Fluzone Unknown Aug 25, 2016 Other s SOCIAL HISTORY Tobacco Use: Social History Observation Description Date Details (start date - stop date) Never Smoker Sex Assigned At : Social History Observation Description Sex Assigned At Unknown Education: Question Answer Notes Level of Education: Not finished High School finished 9th gr [employer] Question Answer Notes Total Score: 0 Interpretation: Alcohol Education Language: Question Answer Notes Languages spoken: Georgian Sexual Hx: Question Answer Notes Had sex in the last 12 months (vaginal, oral, or anal)? No Have you ever had an STD? No Drug and Alcohol Question Answer Notes Total Score: 0 Interpretation: No problems reported Alcohol Screening: Question Answer Notes Did you have a drink containing alcohol in the past year? No Points 0 Interpretation Negative BMI Care Goal Follow-Up Question Answer Notes Above Normal BMI Follow-Up Lifestyle education regarding t Tobacco Use: Question Answer Notes Are you a: never smoker REASON FOR REFERRAL No Information VITAL SIGNS No information MEDICATIONS Medication SIG (Take, Route, Frequency, Duration) Notes Start Da te End Date Status Drjacqueline 23573 UNIT 1 capsule Orally Once a week for 90 day(s) Dr Sharon Dowling Nov, Not-Taking Bactroban 2 % 1 application to affected ar ea Externally Three times a day for 10 day(s) Not-Taking Valsartan 320 MG 1 tablet Orally Once a day at bedtime Not-Taking Losartan Potassium 100 MG 1 tablet Orally Once a day for 90 day(s) Cardiology Not-Taking Atorvastatin Calcium 20 MG 1 tablet Orally Once a day for 90 day(s) Active Coreg 25 MG 1 tab Orally BID for 90 day(s) Active Aspir-81 81 MG 1 tablet Orally Once a day Active Tradjenta 5 MG 1 tablet Orally Once a day for 90 day(s) Active Torsemide 10 MG 1 tab Orally twice daily Active Magnesium 65 MG 1 tablet with a meal Orally Once a day for 90 da y(s) Dec, Active Tylenol Ex St Arthritis Pain 500 MG 1 tablet as needed Orally every 6 hrs Active Losartan Potassium 50 MG 1 tablet Orally Once a day for 90 day(s ) Nov, Active May Have otc exedrin daily as needed Active cloNIDine HCl 0.1 MG 2 tabs in AM and 1 tab in PM Orally twice a day for 90 day(s) Active Docusate Sodium 100 MG 1 capsule as needed Orally Once a day OTC as n eeded Active Glimepiride 4 MG 1 tablet with breakfast or t he first main meal of the day Orally twice daily for 90 day(s) Active Isosorbide Mononitrate ER 60 MG 1 tablet Orally Once a day for 90 day (s) Active Magnesium 65 MG 1 tablet with a meal Orally Once a day for 30 day(s) Active PROCEDURES No Information RESULTS No Results REASON FOR VISIT refill MEDICAL (GENERAL) HISTORY Type Description Date Medical History Diastolic CHF. ECHO (12/11/17). LVEF 60-6 5%. Pacemaker Medical History CKD stage 4 Medical History Diabetes: Uncontrolled. Refuses insulin or any injectable Medical History HTN Medical History FREYA Medical History Hyperlipidemia Medical History ASCVD risk 31.8% 11/2016: unable to tole rate higher dose STATIN Medical History Mammogram: Patient refuses screening, , 12/12/2019 Medical History Colonoscopy: Patient refuses screening, 07/14/18, 12/12/2019 Medical History AVB s/p Pacemaker Surgical History Pacemaker 05/24/2004 Surgical History Total right knee replacement 02/18/2005 Surgical History Cataract extraction B/L 06/18/2011 Surgical History 1965, 1973 Surgical History Pacemaker battery change 09/2016 Hospitalization History Pacemaker 2004 Hospitalization History perianal cyst /sepsiis\ 03/2020 Goals Section No Information Health Concerns No Information MEDICAL EQUIPMENT No Information MENTAL STATUS No Information FUNCTIONAL STATUS No Information ASSESSMENTS Encounter Date Diagnosis Assessment Notes Treatment Notes Treatm ent Clinical Notes Jul, Uncontrolled type 2 diabetes mellitus with hyperglycemia (ICD-10 - E11.65) PLAN OF TREATMENT Medication Medication Name Sig Start Date Stop Date Tradjenta 5 MG 1 tablet Orally Once a day for 90 day(s) Glimepiride 4 MG 1 tablet with breakfast or t he first main meal of the day Orally twice daily for 90 day(s) Losartan Potassium 50 MG 1 tablet Orally Once a day for 90 day(s ) Nov, Coreg 25 MG 1 tab Orally BID for 90 day(s) cloNIDine HCl 0.1 MG 2 tabs in AM and 1 tab in PM Orally twice a day for 90 day(s) Isosorbide Mononitrate ER 60 MG 1 tablet Orally Once a day for 9 0 day(s) Atorvastatin Calcium 20 MG 1 tablet Orally Once a day for 90 day (s) Next Appt Details Provider Name:Dacia Chapman, 2-0 12-24 10:15:00 AM, [address] [facility], , [place], [address], Insurance Providers Payer Name Payer Address Payer Phone Insured Name Patient Relati onship to Insured Coverage Start Date Coverage End Date MEDICARE Part A and B [address] [facility] [id number] MIC FUNK [facility] [address] [facility] [phone] MIC FUNK self
--- OUTSIDE RECORDS SUMMARY | 2021-08-09 13:52 | CCD | Continuity of Care Document ---
Author Author Valentina JEFFERY PA-C Organization Unknown Address [address] [place] [address] Phone [phone] Care Team Providers Care Permit Coordinator Name Role Phone Savannah Dowling MD AUTM [phone] Irma Pitts-C AUTM [phone] Problems Active Problems Provider Date Chronic diastolic [...] 1 by mouth every day Deborah Lam [facility] 019 Clonidine HCL 0.1mg Tablets 1 by mouth tid Deborah Lam [facility] 019 Tradjenta 5mg Tablets 1 by mouth [...] 36.0-47.0 Procedures Date Code Description Status 07/03/2021 48459 Pacer Interrogation Any Leads Co mpleted 02/07/2021 23205 Office/Outpatient Established Mo d MDM 30-39 Min Completed 02/07/2021 58058 ECG 12-Lead Completed Medical Devices Description No [...]
--- OUTSIDE RECORDS SUMMARY | 2021-08-09 13:52 | CCD | Continuity of Care Document ---
Author Author Valentina JEFFERY PA-C Organization Unknown Address [address] [place] [address] Phone [phone] Care Team Providers Care Incident Response Lead Name Role Phone Savannah Dowling MD AUTM [phone] Irma Pitts-C AUTM [phone] Problems Active Problems Provider Date Chronic diastolic [...] 1 by mouth every day Deborah Lam [facility] 019 Clonidine HCL 0.1mg Tablets 1 by mouth tid Deborah Lam [facility] 019 Tradjenta 5mg Tablets 1 by [...] 36.0-47.0 Procedures Date Code Description Status 07/03/2021 80261 Pacer Interrogation Any Leads Co mpleted 02/07/2021 09815 Office/Outpatient Established Mo d MDM 30-39 Min Completed 02/07/2021 05876 ECG 12-Lead Completed Medical Devices Description No [...] Catherine at Main Office 02/07/2021 - BAO Catheirne* I11.0 Hypertensive heart disease with heart failure* [...]
--- OUTSIDE RECORDS SUMMARY | 2021-08-09 13:52 | CCD | Continuity of Care Document ---
Author Author Valentina JEFFERY PA-C Organization Unknown Address [address] [place] [address] Phone [phone] Care Team Providers Care Jukebox Coin Collector Name Role Phone Savannah Dowling MD AUTM [phone] Irma Pitts-C AUTM [phone] Problems Active Problems Provider Date Chronic diastolic [...] 1 by mouth every day Deborah Lam [facility] 019 Clonidine HCL 0.1mg Tablets 1 by mouth tid Deborah Lam [facility] 019 Tradjenta 5mg Tablets 1 by mouth [...] 36.0-47.0 Procedures Date Code Description Status 07/03/2021 89069 Pacer Interrogation Any Leads Co mpleted 02/07/2021 66737 Office/Outpatient Established Mo d MDM 30-39 Min Completed 02/07/2021 97347 ECG 12-Lead Completed Medical Devices Description No [...]
[2021-08-09 14:23] LABS: HEMATOCRIT 33.6 % (36.0-47.0); HEMOGLOBIN 11.1 g/dl (12.0-15.5); MEAN CORPUSCULAR HEMOGLOBIN 31.9 pg (27.0-33.0); MEAN CORPUSCULAR VOLUME 96.6 fl (80.0-96.0); PLATELET COUNT, AUTOMATED 173 10^3/uL (150-450); RED BLOOD COUNT 3.48 10^6/uL (4.00-5.40); WHITE BLOOD COUNT 19.8 10^3/uL (4.0-10.0)
[2021-08-09 15:06] LABS: ALBUMIN 2.7 GM/DL (3.2-5.2); BILIRUBIN,TOTAL 1.2 MG/DL (0.2-1.0); CREATININE FOR GFR 3.12 MG/DL (0.55-1.30); GLOMERULAR FILTRATION RATE 15.4 (>39); POTASSIUM SERUM 4.7 MEQ/L (3.5-5.1); TOTAL PROTEIN 6.1 GM/DL (6.4-8.2)
--- NOTE | 2021-08-09 19:13 | REP ---
INDICATION: sob COMPARISON: 03/29/2020 TECHNIQUE: PA and lateral. FINDINGS: The mediastinum and cardiac silhouette are normal. Dual lead pacemaker in stable position. The lung coleman are clear and without acute consolidation, effusion, or pneumothorax. The skeletal structures are intact and normal. IMPRESSION: No acute cardiopulmonary process. <Electronically signed by Mal Theodore > 08/09/21 4021
[2021-08-09] MEDS ORDERED: HumuLIN R (REGULAR) INSULIN (NovoLIN R) **100U/ML** PER UNIT IV ONE (23:00)
[2021-08-09] MEDS ORDERED: NS 1,000 ML IV ONE (23:00)
--- NOTE | 2021-08-10 00:25 | REPVR ---
PROCEDURE INFORMATION: Exam: CT Abdomen And Pelvis Without Contrast Exam date and time: 08/09/2021 11:13 PM Age: 76 years old Clinical indication: Prior surgery; Additional info: Fever and nausea with leukocytosis TECHNIQUE: Imaging protocol: Computed tomography of the abdomen and pelvis without contrast. Radiation optimization: All CT scans at this facility use at least one of these dose optimization techniques: automated exposure control; mA and/or kV adjustment per patient size (includes targeted exams where dose is matched to clinical indication); or iterative reconstruction. COMPARISON: 1. CT ABD/PEL W/PO CONTRAST ONLY 03/29/2020 4:02 AM 2. CR Chest, 2 view PA, Lat 08/09/2021 6:46:20 PM FINDINGS: Tubes, catheters and devices: Pacemaker wires were partially imaged in the right atrium and right ventricle. Lungs: There is atelectasis in the right lower lobe. Heart: The heart is enlarged. There is a small pericardial effusion that measures water density. There are coronary artery and mitral annular calcifications. Mediastinal space: There is fluid in the esophagus, which can be seen with gastroesophageal reflux. Diaphragm: There is a small sliding hiatal hernia. Liver: There are calcified granulomas in the liver. No liver mass is identified. The contour of the liver is smooth. No hepatomegaly. Gallbladder and bile ducts: There are multiple calcified gallstones in the gallbladder. No gallbladder wall thickening, pericholecystic fluid, or inflammatory fat stranding is noted around the gallbladder. There are approximately 4 calcified stones measuring 2 mm each in the distal portion of the common bile duct (image 68 of the coronal series 202). The common bile duct is dilated and measures up to 10 mm in diameter. No intrahepatic biliary ductal dilation is noted. Pancreas: The pancreas is atrophic and otherwise unremarkable. No dilation of the main pancreatic duct is noted. Spleen: There are calcified granulomas in the spleen. No splenomegaly. Adrenal glands: Unremarkable. No adrenal mass is noted. Kidneys and ureters: The kidneys are unremarkable. No renal lesion is noted. No stones are noted in the kidneys or ureters. There is no hydronephrosis or hydroureter. Stomach and bowel: The intra-abdominal portion of the stomach is unremarkable. The small bowel is unremarkable. There is colonic diverticulosis without evidence for diverticulitis. There is no evidence for a bowel obstruction, colitis, pneumatosis intestinalis, intussusception, volvulus, or perforated viscus. There is a moderate amount of stool in the colon and a moderate to large amount of formed stool distending the rectum. There is a chronic left perianal fistulous tract, which can also be seen in the CT abdomen and pelvis on 03/29/2020. Appendix: Normal. There is no evidence for appendicitis. Intraperitoneal space: No free air. No ascites. No abscess. Retroperitoneal space: Unremarkable. Vasculature: The abdominal aorta is normal in caliber. There are extensive atherosclerotic calcifications. Lymph nodes: No enlarged lymph nodes. There are calcified periportal and precaval lymph nodes, which represent calcified granulomas. Urinary bladder: The partially distended urinary bladder is unremarkable. No stones or masses are seen in the bladder. Reproductive: A vaginal pessary is in place. There is a 17 mm calcified fibroid in the dorsal aspect of the body of the uterus, which is stable compared to the CT abdomen and pelvis on 03/29/2020. The uterus is anteverted. The adnexa are unremarkable. Bones/joints: There is no acute fracture or dislocation. There is an old healed fracture of the right posterior 6th rib. No suspicious osteolytic or osteoblastic lesion. There is severe osteoarthritis of both hips that is similar in appearance compared to the CT abdomen and pelvis on 03/29/2020. There is a ossified body in the left iliopsoas tendon and ossified body superior to the left greater femoral trochanter, which are unchanged compared to the CT abdomen and pelvis on 03/29/2020. There are degenerative changes involving the lower thoracic spine and lumbar spine. There are bridging paraspinal osteophytes at multiple contiguous levels in the thoracic spine, which are findings compatible with diffuse idiopathic skeletal hyperostosis. Soft tissues: There is fat stranding in the right perineal region with a 2 cm x 1.8 cm soft tissue fluid collection that was partially imaged (image 166 of the axial series 201). There is a small fat containing periumbilical hernia located to the left of the umbilicus, which is similar in appearance compared to the CT abdomen and pelvis on 03/29/2020. There is a midline vertical incision scar in the anterior pelvic wall. IMPRESSION: 1. Right perineal cellulitis and a 2 cm x 1.8 cm right perineal soft tissue fluid collection, which may represent an abscess. No soft tissue gas. 2. Chronic left perianal fistulous tract, which can also be seen in the CT abdomen and pelvis on 03/29/2020. 3. Cholelithiasis without CT evidence for cholecystitis. 4. Choledocholithiasis and dilation of the common bile duct. 5. Colonic diverticulosis without evidence for diverticulitis. 6. Small fat containing periumbilical hernia located to the left of the umbilicus, which is similar in appearance compared to the CT abdomen and pelvis on 03/29/2020. 7. Cardiomegaly and a small transudative pericardial effusion. 8. Uterine fibroid, which is stable compared to the CT abdomen and pelvis on 03/29/2020. 9. Moderate amount of stool in the colon and a moderate to large amount of stool distending the rectum. No bowel obstruction. Electronically signed by: Yandel Kruger On 08/10/2021 00:24:21 AM
[2021-08-10] MEDS ORDERED: NS 1,000 ML IV ONE ×2 (01:25→01:35)
[2021-08-10] MEDS ORDERED: cefTRIAXone SOD 1 GM in D5W MINI-BAG PLUS 50 ML IV ONE (01:35)
--- OUTSIDE RECORDS SUMMARY | 2021-08-10 01:45 | CCD ---
Author Author [facility] Organization [facility] Address Unknown Phone Unavailable Care Team Providers Care Meter Repairer Helper Name Role Phone DEMETRA, L JESUS PA [...] is protected by Article 27-F of the [facility] Public Health law. If you continue you may have access to information: Regarding HIV / AIDS; Provided by facilities licensed or operated by the [facility] Office of Mental Health; or Provided by the [facility] Office for People With Developmental Disabilities. If such information is present, then the following [facility] mandated warning applies: This information has been [...] law may result in a fine or long-term sentence or both. A general authorization for the release of medical or other information is NOT sufficient authorization for further disc losure. Family History Family Member Name Family Member Gender Family Member Status Date o f Status Description Data Source(s) Unknown Unknown Problem [facility] ([facility]) Encounters Encounter Providers Location Date Indications Data Source(s ) Unknown [address] [facility] [id number] 07/22/2021 12:00:00 AM EDT eCW1 ([facility]) Unknown [address] [facility] [address] 05/01/2021 12:00:00 AM EDT eCW1 [facility]) Unknown [address] [facility] [address] 03/26/2021 12:00:00 AM EDT eCW1 ([facility] Outpatient [address] [facility] [address] 03/04/2021 12:00:00 AM EDT eCW1 [facility]) Unknown [address] [facility] [place] [address] 02/20/2021 12:00:00 AM EDT eCW1 ([facility]) Outpatient Attender: JESUS GORE Main Office 02/07/2021 1 0:45:00 AM EDT [facility] ([facility]) Unknown [address] [facility] [place] [address] 01/14/2021 12:00:00 AM EDT eCW1 ([facility]) Unknown [address] [facility] [place] [address] 12/25/2020 12:00:00 AM EDT eCW1 ([facility]) Medications Medication Brand Name Start Date Product [...] AM EST ORAL active [facility] ([facility]) torsemide 10 MG Oral Tablet Torsemide 07/25/2020 12:00:00 AM EST ORAL active [facility] ([facility]) 5 mg 07/20/2020 12:00:00 AM EDT [...] TABLET BY MOUTH FIVE DAYS PER [facility] [place] (THURSDAY-THURSDAY) SOLD: 08/21/2020 [place] D rugs glimepiride [...] Plan Information [employer] P[employer] Medigap Part B [id number] .833975.3.227.99.572 .5988.0 Self [id number] [employer] Medigap Part B [id number] 2.816561.3.227.99.572 .5988.0 Self [id number] [employer] Medigap Part B [id number] .420415.3.227.99.572 .5988.0 Self [id number] [employer] Medigap Part B [id number] .267499.3.227.99.572 .5988.0 Self [id number] [employer] Medigap Part B [id number] 2.1.834173.3.227.99.572 .5988.0 Self [id number] [employer] Ppo Medigap Part B [id number] Self Blue P[employer] Medigap Part B [id number] 2.16.840.1.707041.3.227.99.572 .5988.0 Self [id number] [employer] Medigap Part B [id number] 2.16.840.1.623956.3.227.99.572 .5988.0 Self [id number] [employer] Medigap Part B [id number] 2.16840.1.346100.3.227.99.572 .5988.0 Self [id number] [employer] Medigap Part B [id number] 2.16840.1.453653.3.227.99.572 .5988.0 Self [id number] [employer] Medigap Part B [id number] 2.16840.1.069203.3.227.99.572 .5988.0 Self [id number] [employer] Medigap Part B [id number] 2.16840.1.377771.3.227.99.572 .5988.0 Self [id number] [employer] Medigap Part B [id number] 2.16840.1.797733.3.227.99.572 .5988.0 Self [id number] [employer] Medigap Part B [id number] 2.16840.1.184722.3.227.99.572 .5988.0 Self [id number] [employer] Medigap Part B [id number] 2.16840.1.481594.3.227.99.572 .5988.0 Self [id number] [employer] Medigap Part B [id number] 2.16840.1.470074.3.227.99.572 .5988.0 Self [id number] [employer] Medigap Part [place] [id number] Self Blue [employer] Medigap Part B [id number] 2.16840.1.232919.3.227.99.572 .5988.0 Self [id number] [employer] Medigap Part B [id number] 2.16.840.1.535092.3.227.99.572 .5988.0 Self [id number] [employer] Medigap Part B [id number] 2.16.840.1.442548.3.227.99.572 .5988.0 Self [id number] Medicaid Medigap Part B [id number] 2.16.840.1.109087.3.227.99.572.5988 .0 Self [id number] Medicaid Medigap Part B [id number] 2.16.840.1.987178.3.227.99.572.5988 .0 Self [id number] Medicaid Medigap Part B [id number] 2.16.840.1.538777.3.227.99.572.5988 .0 Self [id number] Medicaid Medigap Part B [id number] 2.16.840.1.125912.3.227.99.572.5988 .0 Self [id number] Medicaid Medigap Part B [id number] 2.16.840.1.477408.3.227.99.572.5988 .0 Self [id number] Medicaid Medigap Part B [id number] 2.16.840.1.060714.3.227.99.572.5988 .0 Self [id number] Medicaid Medigap Part B [id number] 2.16.840.1.948071.3.227.99.572.5988 .0 Self [id number] Medicaid Medigap Part B [id number] 2.16.840.1.336691.3.227.99.572.5988 .0 Self [id number] Medicaid Medigap Part B [id number] Self 1 1 Medicaid Medigap Part B [id number] 2.16.840.1.473008.3.227.99.572.5988 .0 Self [id number] [facility] Medigap Part B [id number] 2.16.840.1.371200.3.227.99.572.5988.0 Self [id number] Medicare (Part B) Medicare Primary [id number] 2.16.840.1.272159.3.227.99.572.5988.0 Self 06 [id number] [facility] Medigap Part B [id number] 2.16.840.1.149665.3.227.99.572.5988.0 Self 30 [id number] [facility] Medigap Part B [id number] 2.16.840.1.226348.3.227.99.572.5988.0 Self 30 [id number] Medicare (Part B) Medicare Primary [id number] 2.16.840.1.537219.3.227.99.572.5988.0 Self 06 [id number] MEDICARE [id number] SP [id number] A Medicare (Part B) Medicare Primary [id number] 2.16.840.1.915267.3.227.99.572.5988.0 Self [id number] Medicare (Part B) Medicare Primary [id number] Self Medicare (Part B) Medicare Primary [id number] 2.16.840.1.273985.3.227.99.572.5988.0 Self [id number] [facility] Medigap Part B [id number] 2.16.840.1.269099.3.227.99.572.5988.0 Self [id number] [facility] Medigap Part B [id number] 2.16.840.1.972809.3.227.99.572.5988.0 Self 30 [id number] Medicare (Part B) Medicare Primary [id number] 2.16.840.1.206739.3.227.99.572.5988.0 Self [id number] [facility] Medigap Part B [id number] Self Medicare (Part B) Medicare Primary [id number] 2.16.840.1.741467.3.227.99.572.5988.0 Self 06 [id number] [facility] Medigap Part B [id number] 2.16.840.1.128552.3.227.99.572.5988.0 Self 30 [id number] Medicare Medicare Primary [id number] Self [facility] Medigap Part B [id number] 2.16.840.1.593337.3.227.99.572.5988.0 Self 30 [id number] [facility] Medigap Part B [id number] 2.16.840.1.581841.3.227.99.572.5988.0 Self 30 [id number] Medicare (Part B) Medicare Primary [id number] 2.16.840.1.908470.3.227.99.572.5988.0 Self 06 [id number] Medicare (Part B) Medicare Primary [id number] 2.16.840.1.504677.3.227.99.572.5988.0 Self [id number] [facility] Medigap Part B [id number] 2.16.840.1.929657.3.227.99.572.5988.0 Self 30 [id number] Medicare (Part B) Medicare Primary [id number] 2.16.840.1.602580.3.227.99.572.5988.0 Self 06 [id number] [facility] [facility] [facility] OPTIONS [id number] SP [id number] [employer] [facility] [facility] OPTIONS [id number] SP [id number] MEDICARE C [id number] S [id number] AARP S [id number] 11 [id number] S [id number] 18 11 MEDICARE P [id number] S [id number] A [employer] Medigap Part B [id number] 2.16.840.1.386660.3.227. 99.572.5988.0 Self [id number] ANSI-Medicare Part B [id number] ANSI-Commercial [id number]-svsi-63t5-987v-q44k7q89wqhn 9t8md2ba-ltsf-05f7-677w-l43n6r18nmpq ANSI-Medicare Part B [id number] ANSI-Commercial 91q3fve2-s484-98zq-atr7-987xck1c21b4 33p3uho7-g073-39bq-ggl4-737irx4b96i4 [employer] [facility] Part B [id number] 2.16.840.1.950666.3.227. 99.572.5988.0 Self [id number] ANSI-Commercial [id number] [id number] ANSI-Medicare Part B [id number] ANSI-Medicare Part B [id number]-q644-15m3-94i0-70a9e98u4bq3 ANSI-Commercial e882ykzo-y8q3-6w8b-46gq-lhe3rvi45i1e c926ybjn-q5h4-3v7t-83lv-jkm1pxf70l4e ANSI-Commercial 85648pg4-172s-9q97-[id number] 47170wx2-004q-4g39-m335-8s22902b635o ANSI-Medicare Part B [id number] [id number]-932t-er1d-60jmf0m48x66 ANSI-Commercial db465794-85vn-75c7-xe3x-y8a7g860mr9w [id number]-70s0-ca5l-o1f7d405dr5u ANSI-Medicare Part B [id number]-[id number] ANSI-Commercial 8t11lr21-0s0j-1374-30x5-1k62ofh364zd 9t59qb93-8b4u-2739-74g1-7f33slr008ty ANSI-Medicare Part B [id number] 0e23lcbb-06fi-2qyh-6r60-493hivv53h1o ANSI-Medicare Part B [id number] c1659l49-9j6w-0h58-jt01-460x3frc7kdh ANSI-Commercial 124zhns2-236x-1301-sy8i-6s89qt6j7430 178pazb3-184s-2125-oj1w-6i43mc9u5182 ANSI-Medicare Part B [id number] g3cz2aa1-f83t-08lv-d47y-4mg09hf91152 ANSI-Commercial 1200852i-636p-0k5v-1w4r-mjxg5288936x 5731678x-072t-1f0s-5x8k-leix4822761d ANSI-Commercial 09jm81r5-va6j-04r6-9r3o-ztvo27kgp5uw 57ye93i0-ub6b-85c9-1h6n-sjzo06knz8xz ANSI-Medicare Part B [id number]-[id number] d4v5w06o-9411-0w19-4h83-ia2267610wdd ANSI-Commercial 6vg467f4-mk43-78d5-16i7-76lgg9lf123x 9sg377v9-if48-65z2-90a4-10nsh3ky301j ANSI-Medicare Part B [id number] [id number]-83dj-68yw-0o9s9w840o94 ANSI-Medicare Part B [id number] [id number]-s195-6msq-zp96-90705r26oj78 ANSI-Commercial 78666fy6-95ni-0w5w-a96v-6t7w61x11sc9 80078ao3-26kh-1x3o-h43x-7o5u99d98di4 ANSI-Commercial 95fphvb3-7z84-050o-2l35-[id number] 12rgdvi1-4p38-812v-8j36-jl2006872771 ANSI-Medicare Part B [id number] 4mli65d4-8yd2-6ly4-225f-6n19417d3pis [employer] Medigap Part B [id number] .1.451350.3.227. 99.572.5988.0 Self [id number] [employer] Medigap Part B [id number] 11.06.840.1.284457.3.227. 99.572.5988.0 Self [id number] ANSI-Commercial vl97c4gf-[id number]-p764-[id number] fk54m8ug-062y-2894-f360-[id number] ANSI-Medicare Part B [id number] [id number]-2806-d74y-xe63l2b0h711 MEDICARE [id number] SP [id number] A [employer] Medigap Part B [id number] 2.16.840.1.540727.3.227. 99.572.5988.0 Self [id number] [employer] Medigap Part B [id number] 2.16.840.1.533764.3.227. 99.572.5988.0 Self [id number] [employer] Medigap Part B [id number] 2.16.840.1.018310.3.227. 99.572.5988.0 Self [id number] [employer] Medigap Part B [id number] 2.16.840.1.180142.3.227. 99.572.5988.0 Self [id number] [employer] Medigap Part B [id number] 2.16.840.1.356340.3.227. 99.572.5988.0 Self [id number] [employer] Medigap Part B [id number] Self [facility] OPTIONS [id number] SP [id number] MEDICARE [id number] A [id number] A MEDICARE [id number] Problems, Conditions, and Diagnoses No Information Surgeries/Procedures Procedure Description Date Indications Data Source(s) INTERROGATION EVAL IN PERSON 1/DUAL/INDUSTRIAL DESIGN ENGINEER LEAD PM 2020 12:00:00 AM EDT [facility] ECG ROUTINE ECG W/LEAST 12 LDS W/I&R 02/07/2021 12:00: 00 AM EDT [facility] OFFICE OUTPATIENT VISIT 25 MINUTES 02/07/2021 12:00:00 AM EDT [facility] INTERROGATION EVAL IN PERSON 1/DUAL/INDUSTRIAL DESIGN ENGINEER LEAD PM 2020 12:00:00 AM EDT [facility] INTERROGATION EVAL IN PERSON 1/DUAL/INDUSTRIAL DESIGN ENGINEER LEAD PM 2019 12:00:00 AM EDT [facility] ([facility]) Results ID Date Data Source [id number] 04/03/2021 09:28:00 AM EDT [facility] ([facility]) Name Value Range Interpretation Code Description Data Eneida rce(s) Supporting Document(s) White Blood Count 9.8 4.0-10.0 [facility] ([facility]) Red Blood Count 3.72 4.00-5.40 [facility] ([facility]) Platelets 177 172-450 [facility] ([facility] Hemoglobin 12.1 12.0-16.0 [facility] ([facility]) Hematocrit 36.9 36.0-47.0 [facility] ([facility]) ID Date Data Source [id number] 04/03/2021 09:28:00 AM EDT [facility] ([facility]) Name Value Range Interpretation Code Description Data Eneida rce(s) Supporting Document(s) Blood Urea Nitrogen 28.5 7-18 [facility] ([facility]) Glucose 458 70-106 [facility] Glomerular filtration rate/1.73 sq M.pre dicted [Volume [...] 27.4 21-32 [facility] ([facility]) Calcium 9.1 8.5-10.1 [facility] Albumin 3.6 3.2-5.2 [facility] Phosphorus 3.5 [facility] ([facility]) ID Date Data Source LIPID PANEL (CARDIAC RISK) 03/07/2021 12:00:00 AM EDT eCW1 ( [facility]) Name Value Range Interpretation Code Description Data Eneida rce(s) Supporting Document(s) Cholesterol in HDL [Moles/volume] in Serum or Plasma 41 >40 HDL CHOLESTEROL eCW1 ([facility]) Triglyceride [Mass/volume] in Serum or Plasma by calculation 207 <150 TRIGLYCERIDES LEVEL eCW1 ([facility]) Cholesterol in LDL [Mass/volume] in Serum or Plasma by calculation 24 <100 LDL CHOLESTEROL eCW1 ([facility]) Cholesterol [Moles/volume] in Serum or Plasma 106 <200 CHOLESTEROL LEVEL eCW1 ([facility]) 2.585 <5 CHOLESTEROL RISK RATIO eCW1 ([facility]) 65 NON-HDL-C eCW1 ([facility]) ID Date Data Source [id number] 03/07/2021 12:00:00 AM EDT eCW1 ([facility]) Name Value Range Interpretation Code Description Data Eneida rce(s) Supporting Document(s) EST AVE GLUCOSE eCW1 ([facility]) Use other A1c listing eCW1 ([facility]) HEMOGLOBIN A1c Fill Out f or Reporting eCW1 ([facility]) Hemoglobin A1c/Hemoglobin.total in Blood 12.7 HEMOGLOBIN A1c eCW1 ([facility]) ID Date Data Source Comprehensive Metabolic Profile (CMP) 03/07/2021 12:00:00 AM EDT eCW1 ([facility]) Name Value Range Interpretation Code Description Data Eneida rce(s) Supporting Document(s) 419 70-100 GLUCOSE, FASTING eCW1 ([facility]) 2.18 0.55-1.30 CREATININE FOR GFR eCW1 ([facility]) 23 7-18 BLOOD UREA NITROGEN eCW1 ([facility]) 23.3 >39 GLOMERULAR FILTRATION RATE eCW 1 ([facility]) 5.0 3.5-5.1 POTASSIUM SERUM eCW1 ([facility]) 133 136-145 SODIUM LEVEL eCW1 ([facility]) 27 21-32 CARBON DIOXIDE LEVEL eCW1 ([facility]) 99 98-107 CHLORIDE LEVEL eCW1 ([facility]) 9.0 8.8-10.2 CALCIUM LEVEL eCW1 ([facility]) 15 12-78 ALT/SGPT eCW1 ([facility]) 139 45-117 ALKALINE PHOSPHATASE eCW1 ([facility]) 7 7-37 AST/SGOT eCW1 ([facility]) 3.4 3.2-5.2 ALBUMIN eCW1 ([facility]) 0.5 0.2-1.0 BILIRUBIN,TOTAL eCW1 ([facility]) 6.6 6.4-8.2 TOTAL PROTEIN eCW1 ([facility]) 1.1 1.2-2.2 ALBUMIN/GLOBULIN RATIO eCW1 ([facility]) ID Date Data Source CBC - Complete Blood Count 03/07/2021 12:00:00 AM EDT eCW1 ( [facility]) Name Value Range Interpretation Code Description Data Eneida rce(s) Supporting Document(s) 12.0 12.0-15.5 HEMOGLOBIN eCW1 ([facility]) 3.72 4.00-5.40 RED BLOOD COUNT eCW1 ([facility]) 11.0 4.0-10.0 WHITE BLOOD COUNT eCW1 ([facility]) 32.3 27.0-33.0 MEAN CORPUSCULAR HEMOGLOB IN eCW1 ([facility]) 33.5 32.0-36.5 MEAN CORPUSCULAR HGB CONC eCW1 ([facility]) 96.2 80.0-96.0 MEAN CORPUSCULAR VOLUME e CW1 ([facility]) 35.8 36.0-47.0 HEMATOCRIT eCW1 ([facility]) 229 150-450 PLATELET COUNT, AUTOMATED eCW1 ([facility]) 12.7 11.5-14.5 RED CELL DISTRIBUTION WID TH eCW1 ([facility]) Procedure Social History Code Duration Value Status Description Data Source(s ) Smoking 03/04/2021 12:00:00 AM EDT Never Smoker completed Never S moker eCW1 ([facility]) Smoking 03/04/2021 12:00:00 AM EDT Never Smoker completed Never S moker eCW1 ([facility]) Smoking 03/04/2021 12:00:00 AM EDT Never Smoker completed Never S moker eCW1 ([facility]) Smoking 03/04/2021 12:00:00 AM EDT Never Smoker completed Never S moker eCW1 ([facility]) Smoking 02/07/2021 12:00:00 AM EDT Patient has never smoked co mpleted Patient has never smoked [facility] ([facility]) Vital Signs ID Date Data Source UNK Name Value Range Interpretation Code Description Data Source(s) Body weight 213.8 [lb_av] 213.8 [lb_av] eCW1 ([facility]) Body height 59.5 [in_i] 59.5 [in_i] eCW1 ([facility]) Body mass index (BMI) [Ratio] 42.46 kg/m2 42.46 kg/m2 eCW1 ([facility]) Heart rate 69 /min 69 /min eCW1 ([facility]) Respiratory rate 18 /min 18 /min eCW1 ([facility]) Body temperature 96.4 [degF] 96.4 [degF] eCW1 ( [facility]) Systolic blood pressure 120 mm[Hg] 120 mm[Hg] e CW1 ([facility]) Diastolic blood pressure 72 mm[Hg] 72 mm[Hg] eCW1 ([facility]) Systolic blood pressure--sitting 112 mm[Hg] 112 mm[Hg] [facility] ([facility]) Ra, large cuff Body weight 219.00 [lb_av] 219.00 [lb_av] MEDEN T ([facility]) Body height 59 [in_i] 59 [in_i] [facility] ([facility]) 4'11" Body mass index (BMI) [Ratio] 44.2 kg/m2 44.2 k g/m2 [facility] ([facility]) Heart rate 71 /min 71 /min [facility] ([facility]) Diastolic blood pressure--sitting 60 mm[Hg] 60 mm[Hg] [facility] ([facility]) Ra, large cuff Body weight 214.00 [lb_av] 214.00 [lb_av] MEDEN T ([facility]) Systolic blood pressure--sitting 128 mm[Hg] 128 mm[Hg] [facility] ([facility]) large cuff, Ra Body height 59 [in_i] 59 [in_i] [facility] 4'11" Body mass index (BMI) [Ratio] 43.2 kg/m2 43.2 k g/m2 [facility] ([facility]) Heart rate 69 /min 69 /min [facility] ([facility]) Diastolic blood pressure--sitting 56 mm[Hg] 56 mm[Hg] [facility] ([facility]) large cuff, Ra
[2021-08-10 02:32] LABS: VENOUS BASE EXCESS -0.4 (-2.0-2.0); VENOUS HCO3 24.9 MEQ/L (23.0-27.0); VENOUS O2 SATURATION 58.6 % (60.0-80.0); VENOUS PARTIAL PRESSURE CO2 43.5 mmHg (38.0-50.0); VENOUS PARTIAL PRESSURE O2 30.1 mmHg (30.0-50.0); VENOUS PH 7.376 UNITS (7.330-7.430); VENOUS STANDARD HCO3 23.4 MEQ/L; VENOUS TOTAL CO2 26.3 MEQ/L (24.0-28.0)
--- NOTE | 2021-08-10 02:37 | REPVR ---
PROCEDURE INFORMATION: Exam: US Abdomen, Limited; Right Upper Quadrant Exam date and time: 08/10/2021 2:13 AM Age: 76 years old Clinical indication: Abdominal pain; Acute; Additional info: ? Choledocholithiasis TECHNIQUE: Imaging protocol: US abdomen. Real time ultrasound with image documentation. Limited exam focused on the right upper quadrant. COMPARISON: CT ABD PELVIS W/O CONTRAST 08/09/2021 11:04 PM FINDINGS: Liver: The echogenicity of the liver is within normal limits. No liver lesion is identified from the images obtained. The contour of the liver is smooth. No hepatomegaly is noted. Gallbladder: There are multiple calculi in the gallbladder. No gallbladder wall thickening or pericholecystic fluid is noted. No sonographic Covarrubias's sign was reported by the echo technologist. Common bile duct: The imaged proximal portion of the common bile duct measures 5 mm in diameter. The mid and distal portions of the common bile duct were obscured by intestinal gas. Pancreas: The visualized portion of the pancreas is unremarkable. Right kidney: The right kidney is unremarkable and measures 9.9 cm in length. No right hydronephrosis is present. Intraperitoneal space: No free fluid is seen from the images obtained. IMPRESSION: 1. Cholelithiasis without sonographic evidence for cholecystitis. 2. Mid to distal portion of the common bile duct obscured by intestinal gas. Electronically signed by: Yandel Kruger On 08/10/2021 02:36:56 AM
[2021-08-10 06:09] LABS: CREATININE FOR GFR 3.28 MG/DL (0.55-1.30); GLOMERULAR FILTRATION RATE 14.5 (>39); POTASSIUM SERUM 4.3 MEQ/L (3.5-5.1)
[2021-08-10] MEDS ORDERED: HumuLIN R (REGULAR) INSULIN (NovoLIN R) **100U/ML** PER UNIT IV ONE (06:20)
[2021-08-10 09:00] VITALS: BP 135/88
== END 2021-08-10 09:06 | disposition short-term general hospital (02) ==
LOC: M ED 13:41
DX: E11.65 Type 2 diabetes mellitus with hyperglycemia (principal); N17.9 Acute kidney failure, unspecified; L03.315 Cellulitis of perineum; K80.50 Calculus of bile duct without cholangitis or cholecystitis without obstruction; K57.30 Diverticulosis of large intestine without perforation or abscess without bleeding; R06.02 Shortness of breath; Z95.0 Presence of cardiac pacemaker; I11.0 Hypertensive heart disease with heart failure; K42.9 Umbilical hernia without obstruction or gangrene; Z88.8 Allergy status to other drugs, medicaments and biological substances; Z79.899 Other long term (current) drug therapy; Z79.4 Long term (current) use of insulin
CPT/HCPCS: 51701; 71046; 74176; 76705; 80048; 80053; 81001; 82010; 82803; 83605; 83880; 85027; 87040; 87798; 96361; 96365; 99285; J0696